=== PATIENT | male | born 1960 | race Caucasian/White ===

== ENCOUNTER 2016-08-21 01:17 | Emergency (ER) | payer BC, OTHER ==
[~2016-08-21] VITALS: Ht 175.3 cm; Wt 104.1 kg
[~2016-08-21 01:17] MED LIST: GABA-113 PO; OMEP40CA PO; TRD10 PO
[2016-08-21 01:23] VITALS: TEMP 36.7; Ht 175.3 cm; Wt 104.1 kg
[2016-08-21] MEDS ORDERED: KETOROLAC TROMETHAMINE 60 MG/2 ML VIAL IM STA (02:20)
[2016-08-21] MEDS ORDERED: CYCLOBENZAPRINE HCL 10 MG TAB PO STA (02:20)
--- NOTE | 2016-08-21 02:39 | EMERGENCY ROOM VISIT NOTE ---
History Report prepared by Vanesa: Kyle Benson Under the Supervision of: Dr. Sofi Pereira M.D. First contact with patient: 01:42 Chief Complaint: LEG PAIN,LEG INJURY Stated Complaint: LEG PAIN (WORKERS COMP) History of Present Illness The patient is a 55 year old male who presents to the Emergency Room with complaints of right buttock pain starting about a week ago. He describes it as a shooting pain with pain radiation down to the right leg. He has some worsening pain with bending over and movement. 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 He had some improvement in his pain initially but it worsened yesterday. He returned to work yesterday for the first time since the fall. He had been evaluated by his chiropractor without relief. He denies any urinary symptoms, urinary incontinence, or any other complaints. The patient has a history of sciatica to the left leg. Source of History: patient Onset: about a week ago Position: buttock (right) Quality: other (shooting pain) Timing: worsening Modifying Factors (Worsening): movement, other (bending over) Modifying Factors (Relieving): other (chiropractor without relief) Associated Symptoms: No urinary symptoms Review of Systems See HPI for pertinent positives & negatives. A total of 10 systems reviewed and were otherwise negative. Past Medical & Surgical Medical Problems: (1) Back Contusion (2) Chest pain Family History Diabetes mellitus Hypertension Social History Smoking Status: Never Smoker Alcohol Use: occasionally Marital Status: Housing Status: lives with family Current/Historical Medications Scheduled Amiloride/Hctz (Amiloride/Hydrochlorothia 5-50 mg), 1 TAB PO QAM Cyclobenzaprine Hcl (Flexeril), 1 TAB PO TID Gabapentin (Neurontin), 300 MG PO TID Omeprazole (Prilosec), 40 MG PO HS Scheduled PRN Ketorolac Tromethamine (Ketorolac Tromethamine), 10 MG PO DIRECTED PRN for Pain Allergies Coded Allergies: No Known Allergies (Unverified , 07/01/15) Physical Exam Vital Signs Date Time Temp Pulse Resp B/P (MAP) Pulse Ox O2 Delivery O2 Flow Rate FiO2 08/21/16 03:44 79 18 131/89 96 08/21/16 01:23 36.7 82 19 141/102 95 Room Air Physical Exam Vital signs reviewed. General: Well-appearing 55 yo male, in no significant distress. HEENT: No scleral icterus, PERRLA, neck supple. Atraumatic. Cardiovascular: Regular rate and rhythm, no extra sounds. Pulmonary: Clear to auscultation bilaterally, normal work of breathing. Abdomen: Obese, soft, nontender, nondistended, positive bowel sounds. Musculoskeletal: Atraumatic, no peripheral edema. Mild tenderness along the right buttock, pain with straight leg raise. Full strength of right lower extremity. Neurologic: Patient awake alert and oriented x 3, full strength in all 4 extremities. Skin: Warm, dry, no rash Medical Decision & Procedures ER Provider Diagnostic Interpretation: X-ray results as stated below per interpretation by me: LUMBAR SPINE X-RAY L3 has a superior endplate deformity, likely old fracture, some degenerative changes overall but no acute fracture or malalignment appreciated. Medications Administered Medications (Trade) Dose Ordered Sig/Heladio Route Start Time Stop Time Status Last Admin Dose Admin Ketorolac Tromethamine (Toradol Inj) 60 mg NOW STAT IM 08/21/16 02:20 08/21/16 02:21 DC 08/21/16 02:27 60 MG ED Course 0142: Past medical records reviewed. The patient was evaluated in room A03. A complete history and physical examination was performed. 0220: Flexeril Tab 10 mg PO, Toradol Inj 60 mg IM 0330: Upon reevaluation, the patient appeared to have improvement of his symptoms. I discussed findings with him. He verbalized agreement of the treatment plan. He was discharged home. Medical Decision Medication Reconciliation: I attest that I have personally reviewed the patient' s current medication list. Blood Pressure Screening: Patient was found to have an elevated blood pressure and was referred to their primary doctor for recheck and further treatment. Differential diagnosis: Etiologies such as musculoskeletal, disc herniation, fracture, aortic disease, metastatic disease, cord compression, discitis, infection, renal colic, gastrointestinal, acute exacerbation of chronic back pain, sciatica, cauda equina, as well as others were entertained. This patient was evaluated and appeared to be in no significant distress. Patient was given IM Toradol, no further medication was given as he is intending to drive home. X-rays were obtained and to my interpretation revealed no evidence of acute fracture or malalignment. Patient was given prescriptions for Flexeril to be used as needed for muscular relaxation. He will use ibuprofen as needed otherwise. The patient will follow-up with her primary care physician this week for reevaluation and return to the ER for worsening of symptoms or any medical concerns. Impression Primary Impression: Right lumbar radiculopathy Scribe Attestation The scribe's documentation has been prepared under my direction and personally reviewed by me in its entirety. I confirm that the note above accurately reflects all work, treatment, procedures, and medical decision making performed by me. Departure Information Dispostion Home / Self-Care Prescriptions Cyclobenzaprine Hcl (FLEXERIL) 10 Mg Tab 1 TAB PO TID for 10 Days, #30 TAB Prov: Sofi Pereira M.D. 08/21/16 Referrals Laurence Rangel M.D. (PCP) Forms HOME CARE DOCUMENTATION FORM, IMPORTANT VISIT INFORMATION Patient Instructions Lumbar Radiculopathy, My [facility] Additional Instructions Diagnosis: Right lumbar radiculopathy Ibuprofen 600 mg every 6 hours as needed for pain with food. Flexeril 10 mg three times daily as needed for muscular spasm. Do not drive on this medication. Follow up with your doctor or worker's comp physician this week. Return to emergency for worsening of symptoms or any medical concerns.
[2016-08-21] MEDS ORDERED: CYCL10TA6 PO (03:32)
[2016-08-21 03:44] VITALS: BP 131/89; PULSE 79; O2SAT 96
--- NOTE | 2016-08-21 07:04 | DIAGNOSTIC IMAGING REPORT ---
L-SPINE MIN 4 VIEWS ROUTINE CLINICAL HISTORY: lumbar radiculopathy COMPARISON STUDY: No previous studies for comparison. FINDINGS: There are multilevel degenerative changes present. There is posterior osteophytic spurring most pronounced at the L3-4 and L4-5 level. There is probable calcification of the posterior longitudinal ligament. There is narrowing of the AP diameter of the spinal canal. Spinal stenosis is suspected. No acute fractures are visualized. IMPRESSION: Multilevel degenerative change. Suspected spinal stenosis. No acute fractures. Electronically signed by: Deuce Hollingsworth M.D. 08/21/2016 7:02 AM Dictated Date/Time: 08/21/2016 7:01 AM
[2016-12-17] MEDS ORDERED: AMLH/550 PO (11:17)
== END 2016-08-21 03:45 | disposition home or self-care (01) ==
LOC: C.EDB 01:18 → C.EDA 03:45
DX: M54.16 Radiculopathy, lumbar region (principal); Z83.3 Family history of diabetes mellitus; Z82.49 Family history of ischemic heart disease and other diseases of the circulatory system; Z79.899 Other long term (current) drug therapy; E66.9 Obesity, unspecified; Z68.33 Body mass index [BMI] 33.0-33.9, adult

== ENCOUNTER → 2016-11-12 | Outpatient (CLI) | payer OTHER ==
[~2016-11-12] MED LIST changes: +AMLH/550 PO; +MECL1TAB42 PO
[2016-11-12 12:50] LABS: ESTIMATED AVERAGE GLUCOSE 117 mg/dl; HA1C FLAG Normal (Normal)
[2016-11-12 13:01] LABS: ALT/SGPT 65 U/L (12-78); BLOOD UREA NITROGEN 15 mg/dl (7-18); BUN/CREATININE RATIO 12.3 (10-20); CALCIUM 9.7 mg/dl (8.5-10.1); CARBON DIOXIDE 31 mmol/L (21-32); CHLORIDE 100 mmol/L (98-107); CHOLESTEROL 207 mg/dl (0-200); GLUCOSE 110 mg/dl (70-99); SODIUM 135 mmol/L (136-145); TRIGLYCERIDES 107 mg/dl (0-150); VERY LOW DENSITY LIPOPROT CALC 21 mg/dl
[2016-11-12 13:04] LABS: ALB/GLOB RATIO 1.1 (0.9-2); ALKALINE PHOSPHATASE 61 U/L (45-117); AST/SGOT 36 U/L (15-37); HDL CHOLESTEROL 68 mg/dl; LDL CHOLESTEROL CALCULATED 118 mg/dl
== END | disposition home or self-care (01) ==
LOC: C.LABBFT 08:30
PROVIDERS: ATTEND Internal Medicine
DX: Z00.00 Encounter for general adult medical examination without abnormal findings (principal); I10 Essential (primary) hypertension; R73.01 Impaired fasting glucose

== ENCOUNTER 2016-11-22 08:06 | Emergency (ER) | payer BC, OTHER ==
[~2016-11-22] VITALS: Ht 175.3 cm; Wt 120.0 kg
[~2016-11-22 08:06] MED LIST changes: -MECL1TAB42 PO
[2016-11-22 08:10] VITALS: TEMP 36.7
[2016-11-22] MEDS ORDERED: ONDANSETRON INJ 2 MG/ML 2 ML VIAL IV STA (08:23)
[2016-11-22] MEDS ORDERED: SODIUM CHLORIDE 0.9% 1000ML 1,000 ML IV STA (08:23)
[2016-11-22] MEDS ORDERED: MECLIZINE HCL 25 MG TAB PO STA (08:23)
[2016-11-22] MEDS ORDERED: LORAZEPAM 2 MG/ML 1 ML VIAL IV STA (08:23)
[2016-11-22 08:54] VITALS: O2SAT 94
[2016-11-22 08:55] VITALS: Ht 175.3 cm; Wt 120.0 kg
[2016-11-22 09:00] LABS: BASO % 0.4 %; BASO ABS # 0.02 K/uL (0-0.2); COMPLETE YES; EOS % 1.5 %; HEMATOCRIT 40.3 % (42-52); IG% 0.2 %; LYMPH % 25.8 %; LYMPH ABS # 1.41 K/uL (1.2-3.4); MEAN CORPUSCULAR HEMOGLOBIN 31.8 pg (25-34); MEAN CORPUSCULAR HGB CONC 35.7 g/dl (32-36); MEAN PLATELET VOLUME 10.5 fL (7.4-10.4); MONO % 7.5 %; NEUT % 64.6 %; PLATELET COUNT 134 K/uL (130-400); RED BLOOD COUNT 4.53 M/uL (4.7-6.1); WHITE BLOOD COUNT 5.47 K/uL (4.8-10.8)
--- NOTE | 2016-11-22 09:10 | DIAGNOSTIC IMAGING REPORT ---
CHEST ONE VIEW PORTABLE CLINICAL HISTORY: EVALUATE ALTERED MENTAL STATUS/WEAKNESS dyspnea COMPARISON STUDY: 05/03/2013 FINDINGS: Mild stable cardia megaly. Lungs are clear. Diaphragms smooth. IMPRESSION: Mild stable cardiomegaly. Otherwise negative study. The above report was generated using voice recognition software. It may contain grammatical, syntax or spelling errors. Electronically signed by: Dillon Andujar M.D. 11/22/2016 9:09 AM Dictated Date/Time: 11/22/2016 9:09 AM
[2016-11-22 09:11] LABS: PROTHROMBIN TIME (PATIENT) 10.3 SECONDS (9.0-12.0)
[2016-11-22 09:18] LABS: BLOOD UREA NITROGEN 16 mg/dl (7-18); BUN/CREATININE RATIO 14.9 (10-20); CALCIUM 9.2 mg/dl (8.5-10.1); CARBON DIOXIDE 26 mmol/L (21-32); CHLORIDE 103 mmol/L (98-107); GLUCOSE 129 mg/dl (70-99); MAGNESIUM 2.3 mg/dl (1.8-2.4); POTASSIUM 3.6 mmol/L (3.5-5.1); SODIUM 139 mmol/L (136-145)
--- NOTE | 2016-11-22 09:28 | DIAGNOSTIC IMAGING REPORT ---
HEAD WITHOUT CONTRAST (CT) CT DOSE: 1074.96 mGy.cm HISTORY: DIZZY/VERTIGO/LINDSAY - please include sinuses TECHNIQUE: Multiaxial CT images of the head were performed without the use of intravenous contrast. A dose lowering technique was utilized adhering to the principles of ALARA. Comparison: None. Findings: Mild mucosal thickening of the ethmoid sinuses. The calvarium and skull base are intact. The ventricles and sulci are within normal limits. There is no mass, hematoma, midline shift, or acute infarct. Impression: No acute intracranial abnormality. . Mild mucosal thickening of the ethmoid sinuses The above report was generated using voice recognition software. It may contain grammatical, syntax or spelling errors. Electronically signed by: Dillon Andujar M.D. 11/22/2016 9:27 AM Dictated Date/Time: 11/22/2016 9:25 AM
[2016-11-22 09:30] LABS: ALKALINE PHOSPHATASE 55 U/L (45-117); ALT/SGPT 54 U/L (12-78); AST/SGOT 34 U/L (15-37); PHOSPHORUS 1.9 mg/dl (2.5-4.9)
[2016-11-22] MEDS ORDERED: DiphenhydrAMINE HCL 50 MG/ML VIAL IV STA (09:55)
[2016-11-22 10:35] LABS: URINE APPEARANCE CLEAR (CLEAR); URINE BILIRUBIN NEG (NEG); URINE COLOR YELLOW; URINE NITRITE NEG (NEG); URINE SPECIFIC GRAVITY 1.018 (1.000-1.030); UROBILINOGEN NEG (NEG)
[2016-11-22 10:37] LABS: MANUAL MICROSCOPIC REQUIRED? NO; REVIEW REQ? NO
[2016-11-22] MEDS ORDERED: MECL1TAB42 PO (11:37)
[2016-11-22 11:40] VITALS: BP 132/97; PULSE 73; O2SAT 95
--- NOTE | 2016-11-22 18:06 | EMERGENCY ROOM VISIT NOTE ---
History First contact with patient: 08:15 Chief Complaint: VERTIGO Stated Complaint: VERTIGO Nursing Triage Summary: pt states woke up this morning at 0700 with vertigo symptoms, states he took a meclizine and it did not help with symptoms, pt states vomiting x 3 since 0700. Pt states headache at this time. Pt unable to follow finger with exam, pupils pinpoint at this time. PA-C at bedside at this time. History of Present Illness The patient is a 56 year old male who presents to the Emergency Room with complaints of significant room spinning dizziness, left-sided headache, nausea and vomiting 3 since awakening at 7 AM this morning. The patient reports he felt fine last night when going to bed. He denies any other recent illnesses, headaches, sinus congestion, chest pain or shortness of breath. The patient reports a history of vertigo and chronic tinnitus. He has not had any neurology workup for his symptoms, and has not seen ENT or an principal technical architect. The patient reports that the spinning sensation is worse when his eyes are open. He has not noticed any light or sound sensitivity. He denies history of migraines or chronic headaches. He denies any recent neck pain. He currently rates his headache a 7 out of 10, but complains mostly of nausea and dizziness. Review of Systems HEENT: Reports spinning dizziness, visual problems and tinnitus. Denies difficulty swallowing or oral lesions. PULMONARY: Denies cough, shortness of breath, sputum production or hemoptysis. CARDIOVASCULAR: Denies chest pain, palpitations, dyspnea on exertion, orthopnea or peripheral edema. GASTROINTESTINAL: Denies diarrhea, constipation or abdominal pain. GENITOURINARY: Denies dysuria, frequency, urgency or nocturia. NEUROLOGIC: Denies history of epilepsy, CVA, TIA or chronic headaches. MUSCULOSKELETAL: Denies history of joint tenderness/swelling. SKIN: Denies rashes or lesions. PSYCHIATRIC: Denies history of depression or mental illness. ENDOCRINE: Denies history of diabetes or thyroid disorders. Past Medical/Surgical History Medical Problems: (1) Back Contusion (2) Chest pain Family History Diabetes mellitus Hypertension Social History Smoking Status: Never Smoker Alcohol Use: occasionally Marital Status: Housing Status: lives with family Current/Historical Medications Scheduled Amiloride/Hctz (Amiloride/Hydrochlorothia 5-50 mg), 1 TAB PO QAM Scheduled PRN Meclizine Hcl (Meclizine Hcl), 1 TAB PO TID PRN for vertigo Physical Exam Vital Signs Date Time Temp Pulse Resp B/P (MAP) Pulse Ox O2 Delivery O2 Flow Rate FiO2 11/22/16 11:40 73 16 132/97 95 11/22/16 10:56 65 14 122/82 97 Room Air 11/22/16 10:19 68 16 149/100 97 Room Air 11/22/16 09:34 71 16 136/60 96 Room Air 11/22/16 09:30 68 128/80 87 138/89 11/22/16 08:54 94 Room Air 11/22/16 08:40 94 Room Air 11/22/16 08:22 64 11/22/16 08:10 36.7 67 18 153/91 94 Room Air Physical Exam CONSTITUTIONAL: Healthy and well nourished. Alert and oriented X 3 with positive affect. Patient appears in moderate discomfort from dizziness and nausea. He is holding and emesis bag, and holding his eyes shut HEENT: Normocephalic, atraumatic. Pupils equal, round and reactive. No nystagmus appreciated. No scleral icterus or conjunctival injection. Examination of the years does not show any air-fluid levels, serous or purulent effusion. Bony landmarks are visible. No rhinorrhea. No tenderness to palpation or percussion of the frontal or maxillary sinuses. NECK: Full active range of motion without discomfort. No JVD or carotid bruits appreciated. No nuchal rigidity. RESPIRATORY: Clear to auscultation bilaterally with no wheezing, crackles, rhonchi or stridor. CARDIOVASCULAR: Regular rate and rhythm with no murmurs, rubs or gallops. GASTROINTESTINAL: Bowel sounds present in all quadrants. Soft and nontender to palpation. MUSCULOSKELETAL: Full range of motion of all joints without discomfort. INTEGUMENTARY: No rash or other significant dermatologic conditions noted. NEUROLOGIC: Cranial nerves II-XII grossly intact. No focal neurologic deficits noted. Other peripheral tests were deferred because the patient could not tolerate having his eyes open on initial exam. Medical Decision & Procedures ER Provider Diagnostic Interpretation: My interpretation of an ECG shows a normal sinus rhythm of [address] elevation or other conduction abnormalities. My interpretation of a portable chest x-ray shows mild cardiomegaly without any consolidations, pneumothorax or widened mediastinum. Radiologist report is as follows: CHEST ONE VIEW PORTABLE CLINICAL HISTORY: EVALUATE ALTERED MENTAL STATUS/WEAKNESS dyspnea COMPARISON STUDY: 05/03/2013 FINDINGS: Mild stable cardia megaly. Lungs are clear. Diaphragms smooth. IMPRESSION: Mild stable cardiomegaly. Otherwise negative study. Noncontrast CT of the head does not show any acute intracranial masses, midline shift or mass effect. Radiologist report is as follows: HEAD WITHOUT CONTRAST (CT) CT DOSE: 1074.96 mGy.cm HISTORY: DIZZY/VERTIGO/LINDSAY - please include sinuses TECHNIQUE: Multiaxial CT images of the head were performed without the use of intravenous contrast. A dose lowering technique was utilized adhering to the principles of ALARA. Comparison: None. Findings: Mild mucosal thickening of the ethmoid sinuses. The calvarium and skull base are intact. The ventricles and sulci are within normal limits. There is no mass, hematoma, midline shift, or acute infarct. Impression: No acute intracranial abnormality. . Mild mucosal thickening of the ethmoid sinuses Laboratory Results 11/22/16 08:45 Red Blood Count 4.53, Mean Corpuscular Volume 89.0, Mean Corpuscular Hemoglobin 31.8, Mean Corpuscular Hemoglobin Concent 35.7, Mean Platelet Volume 10.5, Neutrophils (%) (Auto) 64.6, Lymphocytes (%) (Auto) 25.8, Monocytes (%) (Auto) 7.5, Eosinophils (%) (Auto) 1.5, Basophils (%) (Auto) 0.4, Neutrophils # (Auto) 3.54, Lymphocytes # (Auto) 1.41, Monocytes # (Auto) 0.41, Eosinophils # (Auto) 0.08, Basophils # (Auto) 0.02 11/22/16 08:45 Test 11/22/16 08:45 11/22/16 10:25 White Blood Count 5.47 K/uL (4.8-10.8) Red Blood Count 4.53 M/uL (4.7-6.1) Hemoglobin 14.4 g/dL (14.0-18.0) Hematocrit 40.3 % (42-52) Mean Corpuscular Volume 89.0 fL (80-100) Mean Corpuscular Hemoglobin 31.8 pg (25-34) Mean Corpuscular Hemoglobin Concent 35.7 g/dl (32-36) Platelet Count 134 K/uL (130-400) Mean Platelet Volume 10.5 fL (7.4-10.4) Neutrophils (%) (Auto) 64.6 % Lymphocytes (%) (Auto) 25.8 % Monocytes (%) (Auto) 7.5 % Eosinophils (%) (Auto) 1.5 % Basophils (%) (Auto) 0.4 % Neutrophils # (Auto) 3.54 K/uL (1.4-6.5) Lymphocytes # (Auto) 1.41 K/uL (1.2-3.4) Monocytes # (Auto) 0.41 K/uL (0.11-0.59) Eosinophils # (Auto) 0.08 K/uL (0-0.5) Basophils # (Auto) 0.02 K/uL (0-0.2) RDW Standard Deviation 41.8 fL (36.4-46.3) RDW Coefficient of Variation 12.9 % (11.5-14.5) Immature Granulocyte % (Auto) 0.2 % Immature Granulocyte # (Auto) 0.01 K/uL (0.00-0.02) Prothrombin Time 10.3 SECONDS (9.0-12.0) Prothromb Time International Ratio 1.0 (0.9-1.1) Activated Partial Thromboplast Time 25.9 SECONDS (21.0-31.0) Partial Thromboplastin Ratio 1.0 Anion Gap 10.0 mmol/L (3-11) Est Creatinine Clear Calc Drug Dose 97.1 ml/min Estimated GFR () 87.1 Estimated GFR (Non- 75.2 BUN/Creatinine Ratio 14.9 (10-20) Bedside Glucose 123 mg/dl (70-99) Calcium Level 9.2 mg/dl (8.5-10.1) Phosphorus Level 1.9 mg/dl (2.5-4.9) Magnesium Level 2.3 mg/dl (1.8-2.4) Total Bilirubin 0.5 mg/dl (0.2-1) Direct Bilirubin 0.2 mg/dl (0-0.2) Aspartate Amino Transf (AST/SGOT) 34 U/L (15-37) Alanine Aminotransferase (ALT/SGPT) 54 U/L (12-78) Alkaline Phosphatase 55 U/L (45-117) Troponin I < 0.015 ng/ml (0-0.045) Total Protein 7.3 gm/dl (6.4-8.2) Albumin 3.6 gm/dl (3.4-5.0) Thyroid Stimulating Hormone (TSH) 1.240 uIu/ml (0.300-4.500) Urine Color YELLOW Urine Appearance CLEAR (CLEAR) Urine pH 7.0 (4.5-7.5) Urine Specific [place]le 1.018 (1.000-1.030) Urine Protein NEG (NEG) Urine Glucose (UA) NEG (NEG) Urine Ketones NEG (NEG) Urine Occult Blood NEG (NEG) Urine Nitrite NEG (NEG) Urine Bilirubin NEG (NEG) Urine Urobilinogen NEG (NEG) Urine Leukocyte Esterase NEG (NEG) The above labs were reviewed and were grossly normal. Medications Administered Medications (Trade) Dose Ordered Sig/Heladio Route Start Time Stop Time Status Last Admin Dose Admin Ondansetron HCl (Zofran Inj) 4 mg NOW STAT IV 11/22/16 08:23 11/22/16 08:29 DC 11/22/16 08:48 4 MG Sodium Chloride 1,000 ml @ 999 mls/hr Q1H1M STAT IV 11/22/16 08:23 11/22/16 09:23 DC 11/22/16 08:48 999 MLS/HR Lorazepam (Ativan Inj) 1 mg NOW STAT IV 11/22/16 08:23 11/22/16 08:29 DC 11/22/16 08:48 1 MG Meclizine HCl (Antivert Tab) 25 mg NOW STAT PO 11/22/16 08:23 11/22/16 08:29 DC 11/22/16 08:48 25 MG Diphenhydramine HCl (Benadryl Inj) 25 mg NOW STAT IV 11/22/16 09:55 11/22/16 09:56 DC 11/22/16 10:02 25 MG Procedure 1. IV hydration: The patient was administered normal saline 1 L bolus 2. IV medications: Ativan 1 mg and Zofran 4 mg IVP. 3. Oral medications: Meclizine 25 mg orally. ED Course Patient history and physical exam were performed. Nurse's notes were reviewed. Vital signs were reviewed, showing a blood pressure 153/91. O2 saturation is 94% on room air. The patient is afebrile and not tachycardic. The patient appears quite nauseated, and is holding his eyes shut because his spending symptoms are worsened with open eyes. IV access was established, and labs were drawn. The patient was hydrated with normal saline, and received IV/oral medications as discussed in the previous Procedure section. Review of labs shows no acute abnormalities. ECG and portable chest x-ray were normal. A noncontrast CT of the head was also normal. Upon reexamination, the patient reports that he did have moderate relief of his dizziness, but still had been of symptoms that he didn't feel comfortable trying to stand up and walk. He was given additional IV Benadryl, and observed for another period of time with significant improvement of symptoms. He was able to trial ambulated to the bathroom without any difficulty. The patient was provided an additional prescription for meclizine. The vertigo handout was provided. He was instructed to sleep with his head elevated, and avoid sudden movements. I did encourage him to follow-up with his PCP in the next 2-3 days for reevaluation. Because the patient does have prior history of vertigo and tinnitus, I did suggest that he follow-up with his PCP to discuss possible neurology or ENT referral to rule out other vestibular causes. Return to the emergency department for worsening symptoms or other concerning symptoms. The patient was happy with plan of care, and voiced understanding of all discharge instructions. The case was also discussed with Dr. Will, ED attending physician, who agrees with workup and plan of care. Medical Decision Patient presents to the emergency department with vertigo symptoms and headache. The patient has had a recent head CT with history of vertigo. However, this is the first time that he has had a headache with his vertigo. I therefore thought necessary to rule out intracranial bleed or other acute etiologies. CT scan did not show any evidence for midline shift or mass effect. The patient doesn't give any history to suggest carbon monoxide poisoning. His physical exam is not suggestive of CVA/TIA. He has no history of recent illness suggest abscess, and clinical exam is not consistent with meningitis. The patient is a typical description of the room spinning, and does have a prior history of vertigo. [facility] Drug Monitoring Program Search Results: patient reviewed within database Medication Reconcilliation Current Medication List: was personally reviewed by me Blood Pressure Screening Patient's blood pressure: Normal blood pressure Impression Primary Impression: Benign positional vertigo Departure Information Prescriptions Meclizine Hcl (MECLIZINE HCL) 25 Mg Tab 1 TAB PO TID Y for vertigo, #15 TAB Prov: Jesús Parsons PA 11/22/16 Referrals Laurence Rangel M.D. (PCP) Patient Instructions My [facility] Problem Qualifiers Primary Impression: Benign positional vertigo Laterality: unspecified laterality Qualified Codes: H81.10 - Benign paroxysmal vertigo, unspecified ear
== END 2016-11-22 11:43 | disposition home or self-care (01) ==
LOC: C.EDB 08:08
DX: H81.10 Benign paroxysmal vertigo, unspecified ear (principal); R51 Headache; R11.2 Nausea with vomiting, unspecified; Z83.3 Family history of diabetes mellitus; Z82.49 Family history of ischemic heart disease and other diseases of the circulatory system; Z79.899 Other long term (current) drug therapy

== ENCOUNTER 2016-12-17 16:26 | Emergency (ER) | payer BC ==
[~2016-12-17] VITALS: Ht 175.3 cm; Wt 118.0 kg
[~2016-12-17 16:26] MED LIST changes: -GABA-113 PO; +MECL1TAB42 PO; -OMEP40CA PO; -TRD10 PO
[2016-12-17 16:29] VITALS: TEMP 36.6; Ht 175.3 cm; Wt 118.0 kg
[2016-12-17] MEDS ORDERED: FLX10 PO (16:47)
[2016-12-17] MEDS ORDERED: OXYCODONE HCL IR 5 MG TAB (IMMEDIATE RELEASE) PO STA (16:56)
--- NOTE | 2016-12-17 17:44 | DIAGNOSTIC IMAGING REPORT ---
R FOOT MIN 3 VIEWS ROUTINE CLINICAL HISTORY: Right foot pain. Trauma to metatarsals. COMPARISON: None FINDINGS: Alignment of the right foot is anatomic. Tarsometatarsal joints are intact. No acute fracture is identified. There is moderate dorsal midfoot soft tissue swelling. Note is made of mild posterior and moderate plantar calcaneal spurring. IMPRESSION: 1. No acute fracture or dislocation within the right foot. 2. Moderate dorsal midfoot soft tissue swelling. Electronically signed by: Torsten Rangel M.D. 12/17/2016 5:42 PM Dictated Date/Time: 12/17/2016 5:40 PM
--- NOTE | 2016-12-17 18:01 | EMERGENCY ROOM VISIT NOTE ---
History First contact with patient: 16:51 Chief Complaint: FOOT PAIN Stated Complaint: FOOT PAIN History of Present Illness The patient is a 56 year old male who presents to the Emergency Room via private vehicle accompanied by with complaints of "foot pain". The patient states that earlier today about 20 minutes prior to arrival he was at home, and a lock box fell off of the shelf in his closet landing on the top of his right foot. He rates the pain as a 10/10. There is pain with weightbearing and moving the toes. Review of Systems A complete 6-point Review of Systems was discussed with the patient, with pertinent positives and negatives listed in the History of Present Illness. All remaining Review of Systems questions can be considered negative unless otherwise specified. Past Medical/Surgical History Medical Problems: (1) Back Contusion (2) Chest pain Family History Diabetes mellitus Hypertension Social History Smoking Status: Never Smoker Alcohol Use: occasionally Marital Status: Housing Status: lives with family Patient lives locally. Current/Historical Medications Scheduled Amiloride/Hctz (Amiloride/Hydrochlorothia 5-50 mg), 1 TAB PO QAM Cyclobenzaprine HCl (Cyclobenzaprine HCl), 10 MG PO PRN UD Scheduled PRN Meclizine Hcl (Meclizine Hcl), 1 TAB PO TID PRN for vertigo Oxycodone Ir (Roxicodone Ir), 1-2 TAB PO Q4H PRN for Pain Physical Exam Vital Signs Date Time Temp Pulse Resp B/P (MAP) Pulse Ox O2 Delivery O2 Flow Rate FiO2 12/17/16 19:17 66 20 108/82 96 12/17/16 18:36 74 16 136/83 94 Room Air 12/17/16 16:29 36.6 83 18 156/93 96 Room Air Physical Exam VITAL SIGNS - Vital signs and nursing notes were reviewed. Stable. Hypertensive. GENERAL -56-year-old male appearing his stated age who is in no acute distress. Communicates well with provider and answers questions appropriately. SKIN - Without rashes. There is soft tissue edema overlying the top of the patient's right foot, but the skin is intact. No ecchymosis. EXTREMITIES - No clubbing or peripheral cyanosis. No pretibial edema present. There is tenderness to palpation overlying the top of the patient's right foot. There is also tenderness with range of motion of the toes. He is neurovascularly intact. +5/5 strength noted in UE/LE bilaterally. Medical Decision & Procedures ER Provider Diagnostic Interpretation: R FOOT MIN 3 VIEWS ROUTINE CLINICAL HISTORY: Right foot pain. Trauma to metatarsals. COMPARISON: None FINDINGS: Alignment of the right foot is anatomic. Tarsometatarsal joints are intact. No acute fracture is identified. There is moderate dorsal midfoot soft tissue swelling. Note is made of mild posterior and moderate plantar calcaneal spurring. IMPRESSION: 1. No acute fracture or dislocation within the right foot. 2. Moderate dorsal midfoot soft tissue swelling. Electronically signed by: Torsten Rangel M.D. 12/17/2016 5:42 PM Dictated Date/Time: 12/17/2016 5:40 PM Medications Administered Medications (Trade) Dose Ordered Sig/Heladio Route Start Time Stop Time Status Last Admin Dose Admin Oxycodone HCl (Roxicodone Immediate Rel Tab) 5 mg NOW STAT PO 12/17/16 16:56 12/17/16 16:58 DC 12/17/16 17:09 5 MG Medical Decision Patient was seen and evaluated as above. He presents to us today status post trauma to the top of his right foot. His exam reveals intact skin, with some edema. X-rays are negative. I suspect he has soft tissue contusion, but did educate him upon the chance of occult fracture. He'll be made nonweightbearing with crutches, as well as given a postop shoe for comfort. Because of the patient's amount of edema, and pain I do believe that narcotic medication is reasonable for a short course for pain management. He'll be given oxycodone. No red flag identified in the [employer] drug monitoring system. He is to follow-up with orthopedics. He was educated upon management, educated upon worrisome symptoms which to return, had questions answered prior to discharge, and was discharged home in good condition. In the evaluation and treatment of this patient, the following differential diagnoses were considered: Ankle Fracture, Ankle Sprain, Distal Fibula Fracture , Distal Tibia Fracture, Foot Fracture, Maisonneuve Fracture. Impression Primary Impression: Foot pain Departure Information Dispostion Home / Self-Care Condition GOOD Prescriptions Oxycodone Ir (Roxicodone Ir) 5 Mg Tab 1-2 TAB PO Q4H Y for Pain, #15 TAB For Initial Treatment Prov: Guy Moss PA-C 12/17/16 Referrals Laurence Rangel M.D. (PCP) Mikey Morales M.D. Patient Instructions My [facility] Additional Instructions You have been treated in the Emergency Department for a right foot injury. You have received pain medicine in the emergency department which impairs your ability to operate a vehicle. It is illegal for you to drive after receiving these medicines. You have been prescribed OXY IR to be used for pain control. This is a narcotic medication. You cannot drive or consume alcohol while on this medicine. This medicine should only be used for pain that cannot be controlled with over-the- counter pain medicines. For pain control, you can use the following [id number] medicines: - Regular strength (325mg/tab) Tylenol (acetaminophen) 2 tabs every 4-6 hours as needed. Do not exceed 12 tablets in a 24 hour period. Avoid taking more than 3 grams (3000 mg) of Tylenol per day. This includes any other sources of acetaminophen you may take on a regular basis. If this is a recent injury (<24 hrs), ice can be applied to the area of pain for the first 3 days to help decrease pain and inflammation. You have been provided the number for an Orthopaedic Surgeon. You should call this number as soon as possible to establish a follow-up visit from today's Emergency Department visit. Keep the foot brace/splint in place until cleared by Orthopedics. Use the crutches you have been provided to keep ALL weight off of the ankle until weight bearing is tolerable. Return to the Emergency Department if your current symptoms worsen despite treatment course outlined above, or if you develop any of the following symptoms : intractable pain despite aforementioned treatment course or new onset of numbness or tingling of the foot.
[2016-12-17] MEDS ORDERED: OXYC1TAB3 PO (18:05)
[2016-12-17 19:17] VITALS: BP 108/82; PULSE 66; O2SAT 96
== END 2016-12-17 19:20 | disposition home or self-care (01) ==
LOC: C.EDB 16:27 → C.EDD 19:20
DX: S99.921A Unspecified injury of right foot, initial encounter (principal); W20.8XXA Other cause of strike by thrown, projected or falling object, initial encounter; R03.0 Elevated blood-pressure reading, without diagnosis of hypertension; Z79.899 Other long term (current) drug therapy; Z83.3 Family history of diabetes mellitus; Z82.49 Family history of ischemic heart disease and other diseases of the circulatory system

== ENCOUNTER → 2017-07-02 | Outpatient (CLI) | payer OTHER ==
[~2017-07-02] MED LIST changes: +FLX10 PO; -MECL1TAB42 PO
[2017-07-02 17:06] LABS: BASO % 0.2 %; BASO ABS # 0.02 K/uL (0-0.2); EOS % 0.8 %; EOS ABS # 0.07 K/uL (0-0.5); HEMATOCRIT 45.5 % (42-52); HEMOGLOBIN 15.5 g/dL (14.0-18.0); IG# 0.01 K/uL (0.00-0.02); LYMPH % 25.7 %; LYMPH ABS # 2.21 K/uL (1.2-3.4); MEAN CELL VOLUME 91.2 fL (80-100); MEAN CORPUSCULAR HEMOGLOBIN 31.1 pg (25-34); MEAN CORPUSCULAR HGB CONC 34.1 g/dl (32-36); MEAN PLATELET VOLUME 10.3 fL (7.4-10.4); MONO % 8.1 %; NEUT % 65.1 %; NEUT ABS # 5.58 K/uL (1.4-6.5); PLATELET COUNT 158 K/uL (130-400); RED CELL DISTRIBUTION WIDTH CV 13.4 % (11.5-14.5); RED CELL DISTRIBUTION WIDTH SD 43.9 fL (36.4-46.3); WHITE BLOOD COUNT 8.59 K/uL (4.8-10.8)
[2017-07-02 17:23] LABS: ALBUMIN 3.9 gm/dl (3.4-5.0); ALT/SGPT 69 U/L (12-78); AST/SGOT 33 U/L (15-37); BLOOD UREA NITROGEN 28 mg/dl (7-18); CALCIUM 9.1 mg/dl (8.5-10.1); CARBON DIOXIDE 28 mmol/L (21-32); CREATININE 1.37 mg/dl (0.60-1.40); GLUCOSE 96 mg/dl (70-99); POTASSIUM 3.7 mmol/L (3.5-5.1); SODIUM 135 mmol/L (136-145)
[2017-07-02 17:25] LABS: ALKALINE PHOSPHATASE 63 U/L (45-117); TOTAL PROTEIN 8.1 gm/dl (6.4-8.2)
[2017-07-03 07:42] LABS: HEMOGLOBIN A1C 5.7 % (4.5-5.6)
== END | disposition home or self-care (01) ==
LOC: C.LABBFT 11:37
PROVIDERS: ATTEND Internal Medicine
DX: Z00.00 Encounter for general adult medical examination without abnormal findings (principal); I10 Essential (primary) hypertension; R73.01 Impaired fasting glucose; K52.9 Noninfective gastroenteritis and colitis, unspecified

== ENCOUNTER 2018-03-04 08:43 | Inpatient (IN) ==
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
[2018-03-04 09:40] LABS: Appearance Urine Clear (Clear); Bilirubin Urine Negative (Negative); Color Urine Yellow; Glucose Urine UA Negative (Negative); Ketones Urine Negative (Negative); Leukocyte Esterase Urine Negative (Negative); Nitrite Urine Negative (Negative); Protein Urine Negative (Negative); Urobilinogen Urine Negative (Negative); pH Urine 6.5 (4.5-7.5)
[2018-03-04 10:08] LABS: Amphetamines+Metham, Urine Neg (Neg); Barbiturates, Urine Neg (Neg); Benzodiazepine, Urine Neg (Neg); Cocaine, Urine Neg (Neg); MDMA (Ecstacy), Urine Neg (Neg); Methadone, Urine Neg (Neg); Opiate, Urine Neg (Neg); Phencyclidine, Urine Neg (Neg)
[2018-03-04 10:26] LABS: Basophils # (auto) 0.02 K/uL (0-0.2); Basophils % (auto) 0.4 %; Eosinophils # (auto) 0.07 K/uL (0-0.5); Eosinophils % (auto) 1.3 %; Hematocrit (blood only) 42.6 % (42-52); Hemoglobin 15.2 g/dL (14.0-18.0); Immature Granulocytes # (auto) 0.01 K/uL (0.00-0.02); Immature Granulocytes % (auto) 0.2 %; Lymphocytes # (auto) 1.61 K/uL (1.2-3.4); Lymphocytes % (auto) 29.2 %; Mean Corpuscular Hgb Conc 35.7 g/dL (32-36); Mean Platelet Volume 10.7 fL (7.4-10.4); Monocytes # (auto) 0.37 K/uL (0.11-0.59); Monocytes % (auto) 6.7 %; Neutrophils # (auto) 3.44 K/uL (1.4-6.5); Neutrophils % (auto) 62.2 %; Platelet Count 139 K/uL (130-400); RDW Coefficient of Variation 12.1 % (11.5-14.5); RDW Standard Deviation 39.1 fL (36.4-46.3); Red Blood Count 4.84 M/uL (4.7-6.1); White Blood Count 5.52 K/uL (4.8-10.8)
[2018-03-04] MEDS ORDERED: IBUPROFEN 200 MG TAB PO STA (10:32)
[2018-03-04 10:44] LABS: Albumin Level 3.8 gm/dl (3.4-5.0); BUN Creatinine Ratio 13.7 (10-20); Calcium 9.5 mg/dl (8.5-10.1); Creatinine Clr Calc Pharmacy 93.3 ml/min; Est GFR (African American) 84.7; Potassium 3.5 mmol/L (3.5-5.1)
[2018-03-04 10:54] LABS: Albumin Globulin Ratio 0.9 (0.9-2); Bilirubin,Total 0.7 mg/dl (0.2-1); Total Protein 7.8 gm/dl (6.4-8.2)
[2018-03-04 10:56] LABS: Acetaminophen < 2 ug/ml (10-30); Salicylate < 1.7 mg/dl (2.8-20)
--- NOTE | 2018-03-04 10:58 | CT Scan Report ---
CT head/brain wo con CLINICAL HISTORY: 57 years-old Male presenting with headache, altered mental status. TECHNIQUE: Multidetector CT imaging of the head was performed without the use of intravenous contrast . IV contrast: None. A dose lowering technique was used consistent with the principles of ALARA (as l ow as reasonably achievable). COMPARISON: 11/22/2016. CT DOSE (mGy.cm): The estimated cumulative dose is 788.63 mGycm. FINDINGS: Sport Intern topogram: Unremarkable. Ring artifact is noted on several images. Ventricles and sulci normal in size. No hemorrhage. Brain parenchyma normal in appearance with preser roberto negrete-white differentiation. No acute territorial infarct. No mass effect or midline shift. No ext ra-axial fluid collection. Mild mucosal thickening in the maxillary sinuses and ethmoid air cells. Ca lvarium intact. IMPRESSION: 1. No acute intracranial abnormality. Electronically signed by: Vern Hill M.D. 03/04/2018 10:57 AM
[2018-03-04] MEDS ORDERED: ALUMINUM/MAGNESIUM SUSP 30 ML UDC PO PRN (12:33)
[2018-03-04] MEDS ORDERED: BISMUTH SUBSALICYLATE PER ML OMNICELL CHARGE PO PRN (12:33)
[2018-03-04] MEDS ORDERED: SODIUM CHLORIDE 0.65% NA SOLN 45 ML (OCEAN) PRN (12:33)
[2018-03-04] MEDS ORDERED: MAGNESIUM HYDROXIDE SUSP 30 ML UDC PO PRN (12:33)
[2018-03-04] MEDS ORDERED: TEMAZEPAM 15 MG CAPSULE PO PRN (14:49)
[2018-03-04] MEDS ORDERED: clonazePAM 1 MG TAB PO ONE (15:00)
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
[2018-03-04] MEDS: ARIPiprazole 5 MG TAB PO SCH (15:25)
[2018-03-04] MEDS: IBUPROFEN 600 MG TAB PO PRN (16:17)
[2018-03-04] MEDS: PRAZOSIN HCL 1 MG CAP PO SCH (21:12)
--- NOTE | 2018-03-05 07:28 | Psychiatric Progress Note ---
Date of Service March 05, 2018 Impression / Recommendations Impression Patient remains depressed with suicidal thoughts, and has been suffering from debilitating headaches making it difficult for him to participate in the therapy and group aspect of treatment. He has been started on multiple new medications to target mood and sleep, we will continue to treat his headaches and encourage participation in treatment as these resolved. He will need a family meeting with his once he is able to participate. He continues to require inpatient treatment due to the severity of his symptoms and risk for suicide if discharged. (1) Depression with suicidal ideation: 1/ - history of recurrent major depressive episodes and presents today with depression and suicidal thoughts with a specific plan to hang himself. He had been discharged in an improved condition from [facility] behavioral health unit on 02/18/2018 after being admitted following a partial suicide attempt, accompanied at the time by persistent suicidal thoughts and plan, earlier in the month. The patient reports that he did reasonably well in the community following his discharge in January and was feeling "better" for a time. 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 It is not clear if [facility] [employer] [facility] had been notified that the patient was suffering from a medical condition that impaired his ability to perform his essential job duties without special accommodations, and the patient cannot respond to questions in this regard. Perhaps the most striking feature of the patient's current presentation is his gross memory deficits. He is not oriented to time. He is not fully oriented to location. Although he is oriented to person, he tells me that he cannot remember his birthday with certainty. He is oriented to the situation and to a psychiatric unit for treatment of depression. The patient has no lateralizing neurological findings. A cranial CT completed earlier today revealed no intracranial pathology. Reports are that the patient's memory deficits have been present to a far lesser extent during recent months, but that the onset of the currently observed level of confusion occurred around the time that he lost his job at [employer] and became profoundly depressed. He does complain of a fairly persistent frontal headache which is described as steady and "like I got hit in the head or something." (He denies being aware of any recent falls.) He also does not report photophobia or nausea. I believe the best explanation for the patient's memory deficits his sense of derealization, and his other mental status changes is the pseudodementia often associated with severe depression --combined with little or no sleep. The patient tells me that he believes that he has not slept at all for approximately 3 nights, or if he has slept, has been only for brief periods and that he feels "totally exhausted." He does have a history of responding favorably to sertraline 100 mg daily. I will increase his dose of sertraline to 150 mg daily. We will increase his dose of terazosin from 1 mg at bedtime to 3 mg at bedtime for nightmares. I have ordered a brief administration of temazepam 15 mg at bedtime for sleep over the next 3 nights, and have warned him of the risk of physical habituation and potential for falls. I will also start the patient on aripiprazole 5 mg daily, with a starting dose today, as an adjunct to his antidepressant medication. Also, I have offered the patient a one-time dose of clonazepam because he appears tense, anxious and fretful. 03/05 -continue aripiprazole 5 mg every morning, sertraline 150 mg every morning, and prazosin 3 mg at bedtime. -Temazepam 15 mg at bedtime as needed insomnia ordered yesterday but not yet used. -Fasting lipid profile for baseline on an atypical antipsychotic performed today : Cholesterol elevated at 220, remainder of panel within normal limits. Hemoglobin A1c was checked 07/02/2017 and was elevated at 5.7 with an estimated average glucose of 117. He will need to follow-up with his PCP. Present on Admission?: Yes (2) Persistent headaches: 03/05 -continue ibuprofen and acetaminophen as needed. Present on Admission?: Yes Inventory Assets Strengths: Supportive family. Strong work ethic.. History of favorable response to antidepressant medications. Needs: Facing unemployment with attendant financial concerns. Major depressive disorder, recurrent. Suicidal thoughts with plan. Risk Factors Assessment Male: Yes : Yes Do You Have Access To A Gun?: No Health Problems: No Mental Health Diagnoses: Yes Substance Use Disorders: No Previous Attempt: Yes Previous Attempt; Highly Lethal: Yes Previous Attempt; Planned: Yes Previous Attempt; Didn't Tell Anyone: Yes Family History of Suicide: No Previous Psychiatric Hospitalization: Yes Hopelessness: Yes Smoker: No Protective Factors Assessment Methodist Beliefs: Yes : Yes Responsible for Young Children: No Employed: No (Fired from [employer] on Wednesday) Stable Relationships: Yes Supportive Family: Yes Good Rapport with Provider: No Absence of Any Risk Factors Above: No Interval History Identifying Information NATACHA ENCARNACION is a 57-year-old M who currently lives in [facility] with his . He has a history of major depression and was discharged from the behavior health unit approximately two weeks ago. The patient was admitted on06/17 12:33 on a 201 voluntary commitment for depression and suicidal thoughts with a plan. Chief Complaint "In a daze". Review of Systems Notes Poor appetite, headache Sleep Information Total Hours of Sleep: 9.5 Sleep Comments: awake 0600-came out to the day area to check the time. Meal Information Percent Meal Consumed - Dinner: 90 Subjective Subjective Patient was seen & assessed and interval progress reviewed with nursing and social work. Staff report he continues to report depressive symptoms and cognitive impairment. He was started on temazepam and prazosin was increased, aripiprazole was started and sertraline was increased. Today, the patient was seen in his room, stating he woke up with a headache and feels "out of it." He is unsure what medication he takes for headaches at home, although he reports they are chronic, and is unsure if he took medication today for a headache (per review of med list, he received acetaminophen once and ibuprofen twice yesterday , and acetaminophen this morning). He denies side effects to medications. He continues to report low mood, and had suicidal thoughts overnight, stating that he dreamt about committing suicide. Physical Exam Psychiatric Overweight white male appearing his stated age, lying in bed in no acute distress in a darkened room. He is calm and cooperative with the assessment, but a limited historian. Fair eye contact and no abnormal movements. Mood is "in a daze," and affect is restricted to depressed and congruent. Speech is minimal, thoughts are goal-directed but concrete. Paucity of thought content, often stating "I don't know." Endorses SI, denies HI, hallucinations, paranoia , and no delusions are evident. Alert and oriented. Level of intelligence estimated to be below average. Insight and judgment are fair. Vital Signs (Past 24 Hours) Last Vital Signs Temp 36.8 C 03/05/18 06:56 Pulse 73 03/05/18 06:56 Resp 16 03/05/18 06:56 BP 103/72 03/05/18 06:57 Pulse Ox 96 03/04/18 13:16 Results & Data Laboratory Results Laboratory Results - last 24 hr 03/04/18 03/04/18 03/04/18 09:20 09:20 10:10 WBC 5.52 RBC 4.84 Hgb 15.2 Hct 42.6 MCV 88.0 MCH 31.4 MCHC 35.7 RDW Std Deviation 39.1 RDW Coeff of Rose 12.1 Plt Count 139 MPV 10.7 H Immature Gran % (Auto) 0.2 Neut % (Auto) 62.2 Lymph % (Auto) 29.2 [place] % (Auto) 6.7 Eos % (Auto) 1.3 Baso % (Auto) 0.4 Immature Gran # (Auto) 0.01 Neut # (Auto) 3.44 Lymph # (Auto) 1.61 [place] # (Auto) 0.37 Eos # (Auto) 0.07 Baso # (Auto) 0.02 Sodium Potassium Chloride Carbon Dioxide Anion Gap BUN Creatinine Est Cr Clr Drug Dosing Est GFR ( Amer) Est GFR (Non-Af Amer) BUN/Creatinine Ratio Glucose Calcium Total Bilirubin AST ALT Alkaline Phosphatase Total Protein Albumin Globulin Albumin/Globulin Ratio TSH Urine Color Yellow Urine Appearance Clear Urine pH 6.5 Ur Specific [place] 1.020 Urine Protein Negative Urine Glucose (UA) Negative Urine Ketones Negative Urine Blood Negative Urine Nitrite Negative Urine Bilirubin Negative Urine Urobilinogen Negative Ur Leukocyte Esterase Negative Salicylates Urine Opiates Screen Neg Ur Methadone, Qual Neg Acetaminophen Urine Barbiturates Neg Ur Phencyclidine (PCP) Neg U Amphetamin/Meth Scrn Neg MDMA (Ecstasy) Screen Neg U Benzodiazepines Scrn Neg Ur Cocaine Metabolite Neg U Marijuana (THC) Screen Neg Ethyl Alcohol mg/dL 03/04/18 03/04/18 03/04/18 10:10 10:10 10:10 WBC RBC Hgb Hct MCV MCH MCHC RDW Std Deviation RDW Coeff of Rose Plt Count MPV Immature Gran % (Auto) Neut % (Auto) Lymph % (Auto) [place] % (Auto) Eos % (Auto) Baso % (Auto) Immature Gran # (Auto) Neut # (Auto) Lymph # (Auto) [place] # (Auto) Eos # (Auto) Baso # (Auto) Sodium 134 L Potassium 3.5 Chloride 100 Carbon Dioxide 26 Anion Gap 9.0 BUN 15 Creatinine 1.12 Est Cr Clr Drug Dosing 93.3 Est GFR ( Amer) 84.7 Est GFR (Non-Af Amer) 73.0 BUN/Creatinine Ratio 13.7 Glucose 108 H Calcium 9.5 Total Bilirubin 0.7 AST 55 H ALT 103 H Alkaline Phosphatase 64 Total Protein 7.8 Albumin 3.8 Globulin 4.0 Albumin/Globulin Ratio 0.9 TSH 1.800 Urine Color Urine Appearance Urine pH Ur Specific [place] Urine Protein Urine Glucose (UA) Urine Ketones Urine Blood Urine Nitrite Urine Bilirubin Urine Urobilinogen Ur Leukocyte Esterase Salicylates < 1.7 L Urine Opiates Screen Ur Methadone, Qual Acetaminophen < 2 L Urine Barbiturates Ur Phencyclidine (PCP) U Amphetamin/Meth Scrn MDMA (Ecstasy) Screen U Benzodiazepines Scrn Ur Cocaine Metabolite U Marijuana (THC) Screen Ethyl Alcohol mg/dL < 3.0 Current Inpatient Medications Current Inpatient Medications: Current Inpatient Medications Acetaminophen (Tylenol) 650 mg PO Q4H PRN PRN Reason: Headache or Minor Fever Stop: 04/03/18 12:32 Al Hydrox/Mg Hydrox/Simethicone (Maalox) 30 ml PO Q4H PRN PRN Reason: GI Upset Stop: 04/03/18 12:32 Aripiprazole (Abilify) 5 mg PO QAM GIOVANNI Stop: 04/03/18 15:59 Last Admin: 03/04/18 15:25 Dose: 5 mg Bismuth Subsalicylate (Kaopectate) 15 ml PO PRN PRN PRN Reason: Loose Stool Stop: 04/03/18 12:32 Hydroxyzine HCl (Vistaril) 25 mg PO Q4H PRN PRN Reason: Anxiety Stop: 04/03/18 12:32 Hydroxyzine HCl (Vistaril) 50 mg PO HSZ PRN PRN Reason: Insomnia Stop: 04/03/18 12:32 Ibuprofen (Motrin) 600 mg PO Q6H PRN PRN Reason: Headache Stop: 04/03/18 14:45 Last Admin: 03/04/18 16:17 Dose: 600 mg Magnesium Hydroxide (Milk Of Magnesia) 30 ml PO DAILY PRN PRN Reason: Heartburn Stop: 04/03/18 12:32 Prazosin HCl (Prazosin Hcl) 3 mg PO HS GIOVANNI Stop: 04/03/18 21:59 Last Admin: 03/04/18 21:12 Dose: 3 mg Sertraline HCl (Zoloft) 150 mg PO QAM GIOVANNI Stop: 04/04/18 08:59 Sodium Chloride ([place] Nasal) 1 - 2 sprays NA PRN PRN PRN Reason: Nasal Dryness/Congestion Stop: 04/03/18 12:32 Temazepam (Restoril) 15 mg PO HSZ PRN PRN Reason: Insomnia Stop: 03/07/18 14:48 Post Discharge Appointments Primary Care Physician Name Of Family Doctor: Dr Ector Ibrahim Therapist Name of Therapist: [facility] Date of Therapist Appointment: 03/11/18 Stoker Installer Name of Stoker Installer: None CPT Code CPT Code 59430 [id number]
[2018-03-05 07:44] LABS: Chol HDL Ratio 3; Cholesterol 220 mg/dl (0-200); HDL Cholesterol 65 mg/dl; LDL Cholesterol Calculated 132 mg/dl; Triglycerides 116 mg/dl (0-150); VLDL Cholesterol 23 mg/dl
[2018-03-05] MEDS: ARIPiprazole 5 MG TAB PO SCH (09:29)
[2018-03-05] MEDS: IBUPROFEN 600 MG TAB PO PRN ×2 (09:29→16:24)
[2018-03-05] MEDS: SERTRALINE HCL 50 MG TABLET PO SCH (09:30)
[2018-03-05] MEDS: ACETAMINOPHEN 325 MG TAB PO PRN (11:09)
[2018-03-05] MEDS: PRAZOSIN HCL 1 MG CAP PO SCH (21:01)
[2018-03-06] MEDS: ACETAMINOPHEN 325 MG TAB PO PRN (05:43)
[2018-03-06] MEDS: SERTRALINE HCL 50 MG TABLET PO SCH (09:10)
[2018-03-06] MEDS: ARIPiprazole 5 MG TAB PO SCH (09:10)
[2018-03-06] MEDS: IBUPROFEN 600 MG TAB PO PRN (09:12)
--- NOTE | 2018-03-06 09:59 | Psychiatric Progress Note ---
Date of Service March 06, 2018 Impression / Recommendations Impression Patient remains depressed with suicidal thoughts, and has been suffering from debilitating headaches making it difficult for him to participate in the therapy and group aspect of treatment. He has not had a robust response to acetaminophen and ibuprofen as needed, so will give Toradol today. Consider the need for neurological consult given the severity of his headaches. On admission, he was started on multiple new medications to target mood. He will need a family meeting with his once he is able to participate. He continues to require inpatient treatment due to the severity of his symptoms and risk for suicide if discharged. (1) Depression with suicidal ideation: 03/04 - history of recurrent major depressive episodes and presents today with depression and suicidal thoughts with a specific plan to hang himself. He had been discharged in an improved condition from [facility] behavioral health unit on 02/18/2018 after being admitted following a partial suicide attempt, accompanied at the time by persistent suicidal thoughts and plan, earlier in the month. The patient reports that he did reasonably well in the community following his discharge in January and was feeling "better" for a time. 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 It is not clear if [facility] had been notified that the patient was suffering from a medical condition that impaired his ability to perform his essential job duties without special accommodations, and the patient cannot respond to questions in this regard. Perhaps the most striking feature of the patient's current presentation is his gross memory deficits. He is not oriented to time. He is not fully oriented to location. Although he is oriented to person, he tells me that he cannot remember his birthday with certainty. He is oriented to the situation and to a psychiatric unit for treatment of depression. The patient has no lateralizing neurological findings. A cranial CT completed earlier today revealed no intracranial pathology. Reports are that the patient's memory deficits have been present to a far lesser extent during recent months, but that the onset of the currently observed level of confusion occurred around the time that he lost his job at [employer] and became profoundly depressed. He does complain of a fairly persistent frontal headache which is described as steady and "like I got hit in the head or something." (He denies being aware of any recent falls.) He also does not report photophobia or nausea. I believe the best explanation for the patient's memory deficits his sense of derealization, and his other mental status changes is the pseudodementia often associated with severe depression --combined with little or no sleep. The patient tells me that he believes that he has not slept at all for approximately 3 nights, or if he has slept, has been only for brief periods and that he feels "totally exhausted." He does have a history of responding favorably to sertraline 100 mg daily. I will increase his dose of sertraline to 150 mg daily. We will increase his dose of terazosin from 1 mg at bedtime to 3 mg at bedtime for nightmares. I have ordered a brief administration of temazepam 15 mg at bedtime for sleep over the next 3 nights, and have warned him of the risk of physical habituation and potential for falls. I will also start the patient on aripiprazole 5 mg daily, with a starting dose today, as an adjunct to his antidepressant medication. Also, I have offered the patient a one-time dose of clonazepam because he appears tense, anxious and fretful. 15 -continue aripiprazole 5 mg every morning, sertraline 150 mg every morning, and prazosin 3 mg at bedtime. -Temazepam 15 mg at bedtime as needed insomnia ordered yesterday but not yet used. -Fasting lipid profile for baseline on an atypical antipsychotic performed today : Cholesterol elevated at 220, remainder of panel within normal limits. Hemoglobin A1c was checked 07/02/2017 and was elevated at 5.7 with an estimated average glucose of 117. He will need to follow-up with his PCP. (2) Persistent headaches: 03/05 -continue ibuprofen and acetaminophen as needed. 03/06 -ibuprofen and acetaminophen have been poorly effective, with ongoing severe headaches. Patient is a very limited historian and have not been able to clarify the quality of his pain or associated symptoms very well. For now we will treat as tension headaches, as he does not endorse symptoms consistent with migraines or cluster headaches, and does not have signs indicating the presence of a serious underlying disorder such as fever, weight loss, immunocompromise state, seizures, acute neurological changes, acute onset of headache, recent head trauma, illicit drug use or toxic exposure. We will try a one-time dose of Toradol 20 mg today, and then 10 mg every 6 hours as needed, not to exceed 40 mg daily. Will discontinue ibuprofen to limit NSAID exposure. Consider neurological consult if headaches do not improve. Otherwise, he will need to have ongoing treatment as an outpatient. Inventory Assets Strengths: Supportive family. Strong work ethic.. History of favorable response to antidepressant medications. Needs: Facing unemployment with attendant financial concerns. Major depressive disorder, recurrent. Suicidal thoughts with plan. Risk Factors Assessment Male: Yes : Yes Do You Have Access To A Gun?: No Health Problems: No Mental Health Diagnoses: Yes Substance Use Disorders: No Previous Attempt: Yes Previous Attempt; Highly Lethal: Yes Previous Attempt; Planned: Yes Previous Attempt; Didn't Tell Anyone: Yes Family History of Suicide: No Previous Psychiatric Hospitalization: Yes Hopelessness: Yes Smoker: No Protective Factors Assessment Holiness Beliefs: Yes : Yes Responsible for Young Children: No Employed: No (Fired from [employer] on Wednesday) Stable Relationships: Yes Supportive Family: Yes Good Rapport with Provider: No Absence of Any Risk Factors Above: No Interval History Identifying Information NATACHA ENCARNACION is a 57-year-old M who currently lives in [facility] with his . He has a history of major depression and was discharged from the [facility] unit approximately two weeks ago. The patient was admitted on06/17 12:33 on a 201 voluntary commitment for depression and suicidal thoughts with a plan. Chief Complaint "I woke up with this headache". Review of Systems Notes Has had frequent headaches for the past several months, and has had a headache since admission. Denies nausea, vomiting, anorexia, fevers, night sweats, palpitations, diarrhea, and constipation. Sleep Information Total Hours of Sleep: 9 Sleep Comments: awake and out to the day area for headache pain medication around 0545. Meal Information Percent Meal Consumed - Breakfast: 100 Percent Meal Consumed - Lunch: 100 Percent Meal Consumed - Dinner: 100 Subjective Subjective Patient was seen & assessed and interval progress reviewed with Nursing and social work. Staff report the patient slept much of the day yesterday, was up only briefly, and did not go to groups. He is reporting headache, and received both ibuprofen and acetaminophen with minimal relief. He showered, ate his meals without difficulty, and had a phone call from his . He required staff assistance to operate the phone. He woke up early this morning reporting a severe headache. On my assessment, he has just returned to his darkened room after eating breakfast. He continues to report headache symptoms, but is unable to clarify these even when asked and given specific options. He describes the pain as "real bad," but cannot describe the characteristics of the pain even when given a list of options. He says that medications have helped "somewhat," and that the headache makes it difficult for him to think clearly. He denies aura, nausea, vomiting, and says he is not sure if he has photophobia, or what other things exacerbate his headache. He thinks headache started about 3 months ago, and are typically in the frontal area. Mood is " all right I guess," and he says he is "not sure" if he is having suicidal thoughts. He does think he had a disturbing dream, but cannot recall the details or if he had suicidal thoughts last night. Physical Exam Vital Signs (Past 24 Hours) Last Vital Signs Temp 36.6 C 03/06/18 06:49 Pulse 77 03/06/18 06:50 Resp 16 03/06/18 06:49 BP 120/77 03/06/18 06:50 Pulse Ox 96 03/04/18 13:16 Results & Data Current Inpatient Medications Current Inpatient Medications: Current Inpatient Medications Acetaminophen (Tylenol) 650 mg PO Q4H PRN PRN Reason: Headache or Minor Fever Stop: 04/03/18 12:32 Last Admin: 03/06/18 05:43 Dose: 650 mg Al Hydrox/Mg Hydrox/Simethicone (Maalox) 30 ml PO Q4H PRN PRN Reason: GI Upset Stop: 04/03/18 12:32 Aripiprazole (Abilify) 5 mg PO QAM GIOVANNI Stop: 04/03/18 15:59 Last Admin: 03/06/18 09:10 Dose: 5 mg Bismuth Subsalicylate (Kaopectate) 15 ml PO PRN PRN PRN Reason: Loose Stool Stop: 04/03/18 12:32 Hydroxyzine HCl (Vistaril) 25 mg PO Q4H PRN PRN Reason: Anxiety Stop: 04/03/18 12:32 Hydroxyzine HCl (Vistaril) 50 mg PO HSZ PRN PRN Reason: Insomnia Stop: 04/03/18 12:32 Ibuprofen (Motrin) 600 mg PO Q6H PRN PRN Reason: Headache Stop: 04/03/18 14:45 Last Admin: 03/06/18 09:12 Dose: 600 mg Magnesium Hydroxide (Milk Of Magnesia) 30 ml PO DAILY PRN PRN Reason: Heartburn Stop: 04/03/18 12:32 Prazosin HCl (Prazosin Hcl) 3 mg PO HS GIOVANNI Stop: 04/03/18 21:59 Last Admin: 03/05/18 21:01 Dose: 3 mg Sertraline HCl (Zoloft) 150 mg PO QAM GIOVANNI Stop: 04/04/18 08:59 Last Admin: 03/06/18 09:10 Dose: 150 mg Sodium Chloride ([place] Nasal) 1 - 2 sprays NA PRN PRN PRN Reason: Nasal Dryness/Congestion Stop: 04/03/18 12:32 Temazepam (Restoril) 15 mg PO HSZ PRN PRN Reason: Insomnia Stop: 03/07/18 14:48 Post Discharge Appointments Primary Care Physician Name Of Family Doctor: Dr Ector Ibrahim Therapist Name of Therapist: [facility] Date of Therapist Appointment: 03/11/18 Trade Show Specialist Name of Trade Show Specialist: None CPT Code CPT Code 12496
[2018-03-06] MEDS ORDERED: KETOROLAC TROMETHAMINE 10 MG TABLET PO STA (10:00)
[2018-03-06] MEDS: KETOROLAC TROMETHAMINE 10 MG TABLET PO PRN (17:11)
[2018-03-06] MEDS: PRAZOSIN HCL 1 MG CAP PO SCH (21:01)
[2018-03-07] MEDS: SERTRALINE HCL 50 MG TABLET PO SCH (08:25)
[2018-03-07] MEDS: ARIPiprazole 5 MG TAB PO SCH (08:25)
[2018-03-07] MEDS: KETOROLAC TROMETHAMINE 10 MG TABLET PO PRN ×3 (08:25→20:38)
--- NOTE | 2018-03-07 08:39 | Psychiatric Progress Note ---
Date of Service March 07, 2018 Impression / Recommendations Impression Patient remains depressed with suicidal thoughts, with limited ability to participate in groups and therapy. His headaches have improved with Toradol, but are still present. On admission, he was started on multiple new medications to target mood. A family meeting with his is scheduled for tomorrow. He continues to require inpatient treatment due to the severity of his symptoms and risk for suicide if discharged. (1) Depression with suicidal ideation: 1/ - history of recurrent major depressive episodes and presents today with depression and suicidal thoughts with a specific plan to hang himself. He had been discharged in an improved condition from [facility] behavioral health unit on 02/18/2018 after being admitted following a partial suicide attempt, accompanied at the time by persistent suicidal thoughts and plan, earlier in the month. The patient reports that he did reasonably well in the community following his discharge in January and was feeling "better" for a time. 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 It is not clear if [employer] had been notified that the patient was suffering from a medical condition that impaired his ability to perform his essential job duties without special accommodations, and the patient cannot respond to questions in this regard. Perhaps the most striking feature of the patient's current presentation is his gross memory deficits. He is not oriented to time. He is not fully oriented to location. Although he is oriented to person, he tells me that he cannot remember his birthday with certainty. He is oriented to the situation and to a psychiatric unit for treatment of depression. The patient has no lateralizing neurological findings. A cranial CT completed earlier today revealed no intracranial pathology. Reports are that the patient's memory deficits have been present to a far lesser extent during recent months, but that the onset of the currently observed level of confusion occurred around the time that he lost his job at [employer] and became profoundly depressed. He does complain of a fairly persistent frontal headache which is described as steady and "like I got hit in the head or something." (He denies being aware of any recent falls.) He also does not report photophobia or nausea. I believe the best explanation for the patient's memory deficits his sense of derealization, and his other mental status changes is the pseudodementia often associated with severe depression --combined with little or no sleep. The patient tells me that he believes that he has not slept at all for approximately 3 nights, or if he has slept, has been only for brief periods and that he feels "totally exhausted." He does have a history of responding favorably to sertraline 100 mg daily. I will increase his dose of sertraline to 150 mg daily. We will increase his dose of terazosin from 1 mg at bedtime to 3 mg at bedtime for nightmares. I have ordered a brief administration of temazepam 15 mg at bedtime for sleep over the next 3 nights, and have warned him of the risk of physical habituation and potential for falls. I will also start the patient on aripiprazole 5 mg daily, with a starting dose today, as an adjunct to his antidepressant medication. Also, I have offered the patient a one-time dose of clonazepam because he appears tense, anxious and fretful. 03/05 -continue aripiprazole 5 mg every morning, sertraline 150 mg every morning, and prazosin 3 mg at bedtime. -Temazepam 15 mg at bedtime as needed insomnia ordered yesterday but not yet used. -Fasting lipid profile for baseline on an atypical antipsychotic performed today : Cholesterol elevated at 220, remainder of panel within normal limits. Hemoglobin A1c was checked 07/02/2017 and was elevated at 5.7 with an estimated average glucose of 117. He will need to follow-up with his PCP. 03/07 -increase sertraline to 200 mg daily for tomorrow, and continue aripiprazole 5 mg and prazosin 3 mg. -Family meeting with tomorrow. (2) Persistent headaches: 03/05 -continue ibuprofen and acetaminophen as needed. 03/06 -ibuprofen and acetaminophen have been poorly effective, with ongoing severe headaches. Patient is a very limited historian and have not been able to clarify the quality of his pain or associated symptoms very well. For now we will treat as tension headaches, as he does not endorse symptoms consistent with migraines or cluster headaches, and does not have signs indicating the presence of a serious underlying disorder such as fever, weight loss, immunocompromised state, seizures, acute neurological changes, acute onset of headache, recent head trauma, illicit drug use or toxic exposure. We will try a one-time dose of Toradol 20 mg today, and then 10 mg every 6 hours as needed, not to exceed 40 mg daily. Will discontinue ibuprofen to limit NSAID exposure. Consider neurological consult if headaches do not improve. Otherwise, he will need to have ongoing treatment as an outpatient. Inventory Assets Strengths: Supportive family. Strong work ethic.. History of favorable response to antidepressant medications. Needs: Facing unemployment with attendant financial concerns. Major depressive disorder, recurrent. Suicidal thoughts with plan. Risk Factors Assessment Male: Yes : Yes Do You Have Access To A Gun?: No Health Problems: No Mental Health Diagnoses: Yes Substance Use Disorders: No Previous Attempt: Yes Previous Attempt; Highly Lethal: Yes Previous Attempt; Planned: Yes Previous Attempt; Didn't Tell Anyone: Yes Family History of Suicide: No Previous Psychiatric Hospitalization: Yes Hopelessness: Yes Smoker: No Protective Factors Assessment Restoration Beliefs: Yes : Yes Responsible for Young Children: No Employed: No (Fired from [employer] on Wednesday) Stable Relationships: Yes Supportive Family: Yes Good Rapport with Provider: No Absence of Any Risk Factors Above: No Interval History Identifying Information NATACHA ENCARNACION is a 57-year-old M who currently lives in [facility] with his . He has a history of major depression and was discharged from the behavior health unit approximately two weeks ago. The patient was admitted on06/17 12:33 on a 201 voluntary commitment for depression and suicidal thoughts with a plan. Chief Complaint "All right". Review of Systems Notes Headache, no nausea, vomiting, muscle tension. Sleep Information Total Hours of Sleep: 7.25 Sleep Comments: awake and out to the day area for headache pain medication around 0545. Meal Information Percent Meal Consumed - Breakfast: 100 Percent Meal Consumed - Lunch: 100 Percent Meal Consumed - Dinner: 90 Subjective Subjective Patient was seen & assessed and interval progress reviewed with Treatment Team. Staff report headache resolved with Toradol yesterday, and the patient has been out of his room more, but only attending some groups, and has very little participation. A family meeting is scheduled with his tomorrow. He states he feels safe in the hospital, but not at home. On my assessment, he reports that prazosin has been helpful for nightmares, but he still has bad dreams at times, although they are less intense. On my assessment, the patient was seen in his room, where he has returned to bed , stating he has a mild headache. He says his headache resolved yesterday, but started again this morning, although it is much less intense, rating the pain a 2 or 3 out of 10. He does think the Toradol has been helpful. He reports good appetite, and says sleep was disturbed last night by his roommate's snoring. He was moved to another room at his request. He continues to report low mood, although he thinks that it has improved since admission. He says that after discharge from our unit 02/18/2018, he returned home, and never went back to work, as he was informed sometime after [place] that he had been "let go." He says he does not remember why he lost his job, but that he met with "2 guys" who told him he no longer had a job. He does endorse memory problems, stating his memory has been very poor since he started having headaches, and thinking is cloudy. He associates his worsening mood and suicidal thoughts with losing his job, stating that he was "freaked out I would do something, hurt myself." He is hoping to look for a new job after discharge. Physical Exam Mental Examination Overweight white male appearing older than his stated age. Lying in bed in no acute distress in a darkened room. Appropriate dress and grooming. Good eye contact and no abnormal movements. Mood is "all right," and affect is blunted. Thoughts are concrete and goal-directed, with paucity of thought content, often unable to clarify answers when asked. Speech is minimal, normal volume and tone. He endorses suicidal thoughts with concerns that he would "do something to myself" if he were not in the hospital, but feels safe here. No homicidal thoughts, hallucinations, or delusions. Alert and oriented. Level of intelligence estimated to be below average. Insight and judgment are fair. Vital Signs (Past 24 Hours) Last Vital Signs Temp 36.6 C 03/07/18 06:59 Pulse 76 03/07/18 07:00 Resp 16 03/07/18 06:59 BP 131/85 03/07/18 07:00 Pulse Ox 96 03/04/18 13:16 Results & Data Current Inpatient Medications Current Inpatient Medications: Current Inpatient Medications Acetaminophen (Tylenol) 650 mg PO Q4H PRN PRN Reason: Headache or Minor Fever Stop: 04/03/18 12:32 Last Admin: 03/06/18 05:43 Dose: 650 mg Al Hydrox/Mg Hydrox/Simethicone (Maalox) 30 ml PO Q4H PRN PRN Reason: GI Upset Stop: 04/03/18 12:32 Aripiprazole (Abilify) 5 mg PO QAM GIOVANNI Stop: 04/03/18 15:59 Last Admin: 03/07/18 08:25 Dose: 5 mg Bismuth Subsalicylate (Kaopectate) 15 ml PO PRN PRN PRN Reason: Loose Stool Stop: 04/03/18 12:32 Hydroxyzine HCl (Vistaril) 25 mg PO Q4H PRN PRN Reason: Anxiety Stop: 04/03/18 12:32 Hydroxyzine HCl (Vistaril) 50 mg PO HSZ PRN PRN Reason: Insomnia Stop: 04/03/18 12:32 Ketorolac Tromethamine (Toradol) 10 mg PO Q6H PRN PRN Reason: Headache Stop: 04/05/18 09:59 Last Admin: 03/07/18 08:25 Dose: 10 mg Magnesium Hydroxide (Milk Of Magnesia) 30 ml PO DAILY PRN PRN Reason: Heartburn Stop: 04/03/18 12:32 Prazosin HCl (Prazosin Hcl) 3 mg PO HS GIOVANNI Stop: 04/03/18 21:59 Last Admin: 03/06/18 21:01 Dose: 3 mg Sertraline HCl (Zoloft) 150 mg PO QAM GIOVANNI Stop: 04/04/18 08:59 Last Admin: 03/07/18 08:25 Dose: 150 mg Sodium Chloride ([place] Nasal) 1 - 2 sprays NA PRN PRN PRN Reason: Nasal Dryness/Congestion Stop: 04/03/18 12:32 Temazepam (Restoril) 15 mg PO HSZ PRN PRN Reason: Insomnia Stop: 03/07/18 14:48 Post Discharge Appointments Primary Care Physician Name Of Family Doctor: Dr Ector Ibrahim Therapist Name of Therapist: [facility] Date of Therapist Appointment: 03/11/18 Floor Finisher Name of Floor Finisher: None CPT Code CPT Code 65311
[2018-03-07] MEDS: PRAZOSIN HCL 1 MG CAP PO SCH (21:12)
[2018-03-08] MEDS: ACETAMINOPHEN 325 MG TAB PO PRN (07:09)
--- NOTE | 2018-03-08 08:15 | Psychiatric Progress Note ---
Date of Service March 08, 2018 Impression / Recommendations Impression Patient remains depressed with suicidal thoughts, with limited ability to participate in groups and therapy. His headaches have improved with Toradol, but are still present. On admission, he was started on multiple new medications to target mood. A family meeting with his is scheduled for tomorrow. He continues to require inpatient treatment due to the severity of his symptoms and risk for suicide if discharged. (1) Depression with suicidal ideation: 1/ - history of recurrent major depressive episodes and presents today with depression and suicidal thoughts with a specific plan to hang himself. He had been discharged in an improved condition from [facility] behavioral health unit on 02/18/2018 after being admitted following a partial suicide attempt, accompanied at the time by persistent suicidal thoughts and plan, earlier in the month. The patient reports that he did reasonably well in the community following his discharge in January and was feeling "better" for a time. 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 It is not clear if [facility] [facility] had been notified that the patient was suffering from a medical condition that impaired his ability to perform his essential job duties without special accommodations, and the patient cannot respond to questions in this regard. Perhaps the most striking feature of the patient's current presentation is his gross memory deficits. He is not oriented to time. He is not fully oriented to location. Although he is oriented to person, he tells me that he cannot remember his birthday with certainty. He is oriented to the situation and to a psychiatric unit for treatment of depression. The patient has no lateralizing neurological findings. A cranial CT completed earlier today revealed no intracranial pathology. Reports are that the patient's memory deficits have been present to a far lesser extent during recent months, but that the onset of the currently observed level of confusion occurred around the time that he lost his job at [employer] and became profoundly depressed. He does complain of a fairly persistent frontal headache which is described as steady and "like I got hit in the head or something." (He denies being aware of any recent falls.) He also does not report photophobia or nausea. I believe the best explanation for the patient's memory deficits his sense of derealization, and his other mental status changes is the pseudodementia often associated with severe depression --combined with little or no sleep. The patient tells me that he believes that he has not slept at all for approximately 3 nights, or if he has slept, has been only for brief periods and that he feels "totally exhausted." He does have a history of responding favorably to sertraline 100 mg daily. I will increase his dose of sertraline to 150 mg daily. We will increase his dose of terazosin from 1 mg at bedtime to 3 mg at bedtime for nightmares. I have ordered a brief administration of temazepam 15 mg at bedtime for sleep over the next 3 nights, and have warned him of the risk of physical habituation and potential for falls. I will also start the patient on aripiprazole 5 mg daily, with a starting dose today, as an adjunct to his antidepressant medication. Also, I have offered the patient a one-time dose of clonazepam because he appears tense, anxious and fretful. 03/05 -continue aripiprazole 5 mg every morning, sertraline 150 mg every morning, and prazosin 3 mg at bedtime. -Temazepam 15 mg at bedtime as needed insomnia ordered yesterday but not yet used. -Fasting lipid profile for baseline on an atypical antipsychotic performed today : Cholesterol elevated at 220, remainder of panel within normal limits. Hemoglobin A1c was checked 07/02/2017 and was elevated at 5.7 with an estimated average glucose of 117. He will need to follow-up with his PCP. 03/07 -increase sertraline to 200 mg daily for tomorrow, and continue aripiprazole 5 mg and prazosin 3 mg. -Family meeting with tomorrow. (2) Persistent headaches: 03/05 -continue ibuprofen and acetaminophen as needed. 03/06 -ibuprofen and acetaminophen have been poorly effective, with ongoing severe headaches. Patient is a very limited historian and have not been able to clarify the quality of his pain or associated symptoms very well. For now we will treat as tension headaches, as he does not endorse symptoms consistent with migraines or cluster headaches, and does not have signs indicating the presence of a serious underlying disorder such as fever, weight loss, immunocompromised state, seizures, acute neurological changes, acute onset of headache, recent head trauma, illicit drug use or toxic exposure. We will try a one-time dose of Toradol 20 mg today, and then 10 mg every 6 hours as needed, not to exceed 40 mg daily. Will discontinue ibuprofen to limit NSAID exposure. Consider neurological consult if headaches do not improve. Otherwise, he will need to have ongoing treatment as an outpatient. Inventory Assets Strengths: Supportive family. Strong work ethic.. History of favorable response to antidepressant medications. Needs: Facing unemployment with attendant financial concerns. Major depressive disorder, recurrent. Suicidal thoughts with plan. Risk Factors Assessment Male: Yes : Yes Do You Have Access To A Gun?: No Health Problems: No Mental Health Diagnoses: Yes Substance Use Disorders: No Previous Attempt: Yes Previous Attempt; Highly Lethal: Yes Previous Attempt; Planned: Yes Previous Attempt; Didn't Tell Anyone: Yes Family History of Suicide: No Previous Psychiatric Hospitalization: Yes Hopelessness: Yes Smoker: No Protective Factors Assessment Restorationism Beliefs: Yes : Yes Responsible for Young Children: No Employed: No (Fired from [employer] on Wednesday) Stable Relationships: Yes Supportive Family: Yes Good Rapport with Provider: No Absence of Any Risk Factors Above: No Interval History Identifying Information NATACHA ENCARNACION is a 57-year-old M who currently lives in [facility] with his . He has a history of major depression and was discharged from the behavior health unit approximately two weeks ago. The patient was admitted on06/17 12:33 on a 201 voluntary commitment for depression and suicidal thoughts with a plan. Chief Complaint "[]". Review of Systems Sleep Information Total Hours of Sleep: 7.25 Sleep Comments: pt on q-15 minute checks Meal Information Percent Meal Consumed - Breakfast: 100 Percent Meal Consumed - Lunch: 100 Percent Meal Consumed - Dinner: 100 Subjective Subjective Patient was seen & assessed and interval progress reviewed with Nursing and social work. Staff report. Physical Exam Vital Signs (Past 24 Hours) Last Vital Signs Temp 36.8 C 03/08/18 06:58 Pulse 76 03/08/18 06:59 Resp 16 03/08/18 06:58 BP 132/83 03/08/18 06:59 Pulse Ox 96 03/04/18 13:16 Results & Data Current Inpatient Medications Current Inpatient Medications: Current Inpatient Medications Acetaminophen (Tylenol) 650 mg PO Q4H PRN PRN Reason: Headache or Minor Fever Stop: 04/03/18 12:32 Last Admin: 03/08/18 07:09 Dose: 650 mg Al Hydrox/Mg Hydrox/Simethicone (Maalox) 30 ml PO Q4H PRN PRN Reason: GI Upset Stop: 04/03/18 12:32 Aripiprazole (Abilify) 5 mg PO QAM GIOVANNI Stop: 04/03/18 15:59 Last Admin: 03/07/18 08:25 Dose: 5 mg Bismuth Subsalicylate (Kaopectate) 15 ml PO PRN PRN PRN Reason: Loose Stool Stop: 04/03/18 12:32 Hydroxyzine HCl (Vistaril) 25 mg PO Q4H PRN PRN Reason: Anxiety Stop: 04/03/18 12:32 Hydroxyzine HCl (Vistaril) 50 mg PO HSZ PRN PRN Reason: Insomnia Stop: 04/03/18 12:32 Ketorolac Tromethamine (Toradol) 10 mg PO Q6H PRN PRN Reason: Headache Stop: 04/05/18 09:59 Last Admin: 03/07/18 20:38 Dose: 10 mg Magnesium Hydroxide (Milk Of Magnesia) 30 ml PO DAILY PRN PRN Reason: Heartburn Stop: 04/03/18 12:32 Prazosin HCl (Prazosin Hcl) 3 mg PO HS GIOVANNI Stop: 04/03/18 21:59 Last Admin: 03/07/18 21:12 Dose: 3 mg Sertraline HCl (Zoloft) 200 mg PO QAM GIOVANNI Stop: 04/07/18 08:59 Sodium Chloride ([place] Nasal) 1 - 2 sprays NA PRN PRN PRN Reason: Nasal Dryness/Congestion Stop: 04/03/18 12:32 Post Discharge Appointments Primary Care Physician Name Of Family Doctor: Dr Ector Ibrahim Therapist Name of Therapist: [facility] Date of Therapist Appointment: 03/11/18 Electrotyper Helper Name of Electrotyper Helper: None Contact Information Discharge Discharge Address: [address], [place] [id number] CPT Code CPT Code [id number]
[2018-03-08] MEDS ORDERED: SERTRALINE HCL 50 MG TABLET PO SCH (09:00)
[2018-03-08] MEDS: ARIPiprazole 5 MG TAB PO SCH (09:25)
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
== END 2018-03-08 15:17 | disposition home or self-care (01) | DRG 885 ==
LOC: ED 08:43 → 3S 12:16 → SUATTDRO 12:33 → 3S 12:33

== ENCOUNTER 2018-04-04 21:51 | Observation (INO) ==
[2018-04-04 22:40] LABS: Basophils # (auto) 0.02 K/uL (0-0.2); Basophils % (auto) 0.3 %; Eosinophils # (auto) 0.04 K/uL (0-0.5); Eosinophils % (auto) 0.6 %; Hematocrit (blood only) 39.6 % (42-52); Hemoglobin 14.5 g/dL (14.0-18.0); Lymphocytes # (auto) 1.49 K/uL (1.2-3.4); Mean Corpuscular Hgb Conc 36.6 g/dL (32-36); Mean Platelet Volume 10.9 fL (7.4-10.4); Monocytes # (auto) 0.63 K/uL (0.11-0.59); Monocytes % (auto) 10.1 %; Neutrophils # (auto) 4.04 K/uL (1.4-6.5); Platelet Count 118 K/uL (130-400); RDW Coefficient of Variation 12.2 % (11.5-14.5); RDW Standard Deviation 37.4 fL (36.4-46.3); Red Blood Count 4.66 M/uL (4.7-6.1); White Blood Count 6.22 K/uL (4.8-10.8)
[2018-04-04 22:59] LABS: Alanine Aminotransferase 121 U/L (12-78); Albumin Level 3.9 gm/dl (3.4-5.0); Aspartate Aminotransferase 61 U/L (15-37); BUN Creatinine Ratio 13.5 (10-20); Blood Urea Nitrogen 19 mg/dl (7-18); Calcium 8.6 mg/dl (8.5-10.1); Carbon Dioxide 25 mmol/L (21-32); Chloride 93 mmol/L (98-107); Creatinine Clr Calc Pharmacy 75.9 ml/min; Est GFR (African American) 66.4; Est GFR (Non-African American) 57.2; Glucose 220 mg/dl (70-99); Potassium 2.9 mmol/L (3.5-5.1); Sodium 130 mmol/L (136-145)
[2018-04-04 23:10] LABS: Albumin Globulin Ratio 1.1 (0.9-2); Alkaline Phosphatase 68 U/L (45-117); Bilirubin,Total 0.5 mg/dl (0.2-1); Globulin 3.6 gm/dl (2.5-4.0); Total Protein 7.5 gm/dl (6.4-8.2); Troponin I < 0.015 ng/ml (0-0.045)
[2018-04-04] MEDS ORDERED: LORazepam 1 MG TAB SL STA (23:44)
[2018-04-04 23:57] LABS: Magnesium 1.8 mg/dl (1.8-2.4)
[2018-04-05 01:22] LABS: Appearance Urine Clear (Clear); Bilirubin Urine Negative (Negative); Color Urine Yellow; Glucose Urine UA Negative (Negative); Ketones Urine Trace (Negative); Leukocyte Esterase Urine Negative (Negative); Nitrite Urine Negative (Negative); Protein Urine Negative (Negative); Specific Gravity Urine 1.012 (1.000-1.030); Urobilinogen Urine Negative (Negative)
[2018-04-05 01:46] LABS: Amphetamines+Metham, Urine Neg (Neg); Barbiturates, Urine Neg (Neg); Benzodiazepine, Urine Neg (Neg); Cocaine, Urine Neg (Neg); MDMA (Ecstacy), Urine Neg (Neg); Methadone, Urine Neg (Neg); Opiate, Urine Neg (Neg); Phencyclidine, Urine Neg (Neg)
--- NOTE | 2018-04-05 03:03 | Emergency Department Note ---
History of Present Illness General Chief complaint: Syncope Stated complaint: NEAR SYNCOPE, SYNCOPE Time Seen by Provider: 04/04/18 22:33 History of Present Illness This is a 57-year-old male that presents to the emergency department via ambulance accompanied by female with complaints of "syncope". The patient notes that he ate dinner around 430 to 5:00. He then notes that he took his new blood pressure medication around 8:20 PM. He notes that he is not sure what it is but did take 3 pills of which he thought he was prescribed. This is the second day of taking this medication. He notes about half an hour later he began to feel very dizzy, and as he was walking the female in the room notes that he turned very pale, was diaphoretic and then sat down and passed out for less than 1 minute. #1 was called. Upon arrival EMS note that he was alert and oriented. Patient notes a history of vertigo and feels similar. He received 4 mg of Zofran and 1 L of fluid in route. He denies taking other medication besides his prescribed meds. He denies any chest pain, shortness of breath, fevers, pain. Home Medications Home Medications Medication Instructions Recorded Confirmed Type amiloride-hydrochlorothiazide 1 tab PO QAM 11/19/17 04/05/18 History hydroxyzine HCl 50 mg PO HS PRN #10 tab 02/18/18 04/05/18 Rx prazosin 3 mg PO HS #90 cap 03/08/18 04/05/18 Rx sertraline 200 mg PO DAILY #60 tab 03/08/18 04/05/18 Rx meclizine 25 mg PO TID PRN 04/05/18 04/05/18 History omeprazole 40 mg PO HS 04/05/18 04/05/18 History Allergies Allergy/AdvReac Type Severity Reaction Status Date / Time No Known Allergies Allergy Verified 04/05/18 00:10 Past Med/Surg History Medical History GERD (gastroesophageal reflux disease) (Chronic) Osteoarthritis (Chronic) Dyslexia (Chronic) Hypertension (Chronic) Benign positional vertigo (Chronic) Hypertension (Resolved) Vertigo (Resolved) Surgical History History of tooth extraction (Resolved) History of colonoscopy (Resolved) History of open reduction and internal fixation (ORIF) procedure (Resolved) RT Family History Mother Family history of diabetes mellitus Social History Current Living Situation: Spouse Feels Safe at Home: Yes Smoking Status: Never smoker Second Hand Exposure: No Hx Alcohol Use: Yes Alcohol type: beer Alcohol Intake Frequency: a few times a month Hx Substance Use: No Beliefs That Will Affect Care: Nondenominational Nondenominational Beliefs: UATSDIN Preferred Language: Armenian Review of Systems A total of 10 systems reviewed and were otherwise negative Physical Exam Vital Signs Vital Signs - 24 hr 04/04/18 22:00 04/04/18 23:36 04/05/18 01:09 Temperature 37.3 C Temperature Source Oral Sepsis Recent Fever Within 48 Hours No Sepsis New/Unexplained Change in Mental Status No Sepsis Action Taken by Nursing No Action Required Pulse Rate 68 Pulse Rate [Apical] 74 71 Pulse Rhythm Regular Pulse Strength Normal Respiratory Rate 24 19 20 Respiratory Effort / Characteristics Non-Labored Spontaneous Non-Labored Spontaneous Respiratory Depth Normal Normal Respiratory Pattern Regular Blood Pressure 124/70 Blood Pressure [Left Arm] 101/71 122/79 Blood Pressure Mean 88 Blood Pressure Mean [Left Arm] 81 93 Blood Pressure Position Sitting Blood Pressure Position [Left Arm] Sitting Pulse Oximetry 100 97 95 Oxygen Delivery Method Room Air Room Air Room Air 04/05/18 02:45 Temperature Temperature Source Sepsis Recent Fever Within 48 Hours Sepsis New/Unexplained Change in Mental Status Sepsis Action Taken by Nursing Pulse Rate 76 Pulse Rate [Apical] Pulse Rhythm Pulse Strength Respiratory Rate 17 Respiratory Effort / Characteristics Respiratory Depth Respiratory Pattern Blood Pressure 121/78 Blood Pressure [Left Arm] Blood Pressure Mean Blood Pressure Mean [Left Arm] Blood Pressure Position Blood Pressure Position [Left Arm] Pulse Oximetry 93 Oxygen Delivery Method Room Air VITAL SIGNS - Vital signs and nursing notes were reviewed. Stable. GENERAL - 57-year-old male appearing his stated age who is in no acute distress. Communicates well with provider and answers questions appropriately. SKIN - Without rashes. HEAD - NC/AT. EYES - PERRL with EOMI bilaterally. Sclera anicteric. EARS - No deformities of external structures noted on gross examination bilaterally. External auditory canals without discharge or otorrhea. Tympanic membranes pearly negrete without retraction or bulging. No fluid or purulent material visualized behind the TM. Handle of malleus, umbo, cone of light, pars tensa/flaccid all easily visualized. NOSE - Midline and without cyanosis. No epistaxis or purulent drainage noted. MOUTH/OROPHARYNX - Without perioral cyanosis. Buccal mucosa pink and moist and without leukoplakia. Tongue midline with equal elevation of palate bilaterally. No tonsillar hypertrophy, erythema, or exudates noted. Fair dentition noted. NECK - Neck with FROM. Supple to palpation. No lymphadenopathy noted. No nuchal rigidity. LUNGS - Chest wall symmetric without accessory muscle use, intercostals retractions, or central cyanosis. Normal vesicular breath sounds CTA B/L. No wheezes, rales, or rhonchi appreciated. CARDIAC - RRR with S1/S2. No murmur, rubs, or gallops appreciated. ABDOMEN - Abdominal contour normal without pulsations or visible masses. BS normoactive all four quadrants. No tenderness, palpable masses, hepatosplenomegaly, or ascites noted. EXTREMITIES - No clubbing or peripheral cyanosis. No pretibial edema present. + 5/5 strength noted in UE/LE bilaterally. NEUROLOGIC - Cranial nerves II through XII grossly intact. Sensory intact to light touch throughout. P PSYCH - A&Ox3 and cooperates fully with examiner. Pt is very pleasant and interacts well with examiner. Course Administered Medications Discontinued Medications Lorazepam (Ativan) 0.5 mg SL NOW STA Stop: 04/04/18 23:45 Last Admin: 04/05/18 00:36 Dose: 0.5 mg Medical Decision Making Laboratory Data Result diagrams: 04/04/18 22:26 04/04/18 22:26 Lab Results 04/04/18 04/04/18 04/05/18 Range/Units 22:26 22:26 01:05 WBC 6.22 (4.8-10.8) K/uL RBC 4.66 L (4.7-6.1) M/uL Hgb 14.5 (14.0-18.0) g/dL Hct 39.6 L (42-52) % MCV 85.0 (80-100) fL MCH 31.1 (25-34) pg MCHC 36.6 H (32-36) g/dL RDW Std Deviation 37.4 (36.4-46.3) fL RDW Coeff of Rose 12.2 (11.5-14.5) % Plt Count 118 L (130-400) K/uL MPV 10.9 H (7.4-10.4) fL Immature Gran % (Auto) 0.0 % Neut % (Auto) 65.0 % Lymph % (Auto) 24.0 % [place] % (Auto) 10.1 % Eos % (Auto) 0.6 % Baso % (Auto) 0.3 % Immature Gran # (Auto) 0.00 (0.00-0.02) K/uL Neut # (Auto) 4.04 (1.4-6.5) K/uL Lymph # (Auto) 1.49 (1.2-3.4) K/uL [place] # (Auto) 0.63 H (0.11-0.59) K/uL Eos # (Auto) 0.04 (0-0.5) K/uL Baso # (Auto) 0.02 (0-0.2) K/uL Sodium 130 L (136-145) mmol/L Potassium 2.9 L (3.5-5.1) mmol/L Chloride 93 L (98-107) mmol/L Carbon Dioxide 25 (21-32) mmol/L Anion Gap 12.0 H (3-11) BUN 19 H (7-18) mg/dl Creatinine 1.37 (0.6-1.4) mg/dl Est Cr Clr Drug Dosing 75.9 ml/min Est GFR ( Amer) 66.4 Est GFR (Non-Af Amer) 57.2 BUN/Creatinine Ratio 13.5 (10-20) Glucose 220 H (70-99) mg/dl Calcium 8.6 (8.5-10.1) mg/dl Magnesium 1.8 (1.8-2.4) mg/dl Total Bilirubin 0.5 (0.2-1) mg/dl AST 61 H (15-37) U/L ALT 121 H (12-78) U/L Alkaline Phosphatase 68 (45-117) U/L Troponin I < 0.015 (0-0.045) ng/ml Total Protein 7.5 (6.4-8.2) gm/dl Albumin 3.9 (3.4-5.0) gm/dl Globulin 3.6 (2.5-4.0) gm/dl Albumin/Globulin Ratio 1.1 (0.9-2) TSH 1.740 (0.300-4.500) uIu/ml Urine Color Yellow Urine Appearance Clear (Clear) Urine pH 6.0 (4.5-7.5) Ur Specific [place] 1.012 (1.000-1.030) Urine Protein Negative (Negative) Urine Glucose (UA) Negative (Negative) Urine Ketones Trace H (Negative) Urine Blood Negative (Negative) Urine Nitrite Negative (Negative) Urine Bilirubin Negative (Negative) Urine Urobilinogen Negative (Negative) Ur Leukocyte Esterase Negative (Negative) Urine Opiates Screen (Neg) Ur Methadone, Qual (Neg) Urine Barbiturates (Neg) Ur Phencyclidine (PCP) (Neg) U Amphetamin/Meth Scrn (Neg) MDMA (Ecstasy) Screen (Neg) U Benzodiazepines Scrn (Neg) Ur Cocaine Metabolite (Neg) U Marijuana (THC) Screen (Neg) 04/05/18 Range/Units 01:05 WBC (4.8-10.8) K/uL RBC (4.7-6.1) M/uL Hgb (14.0-18.0) g/dL Hct (42-52) % MCV (80-100) fL MCH (25-34) pg MCHC (32-36) g/dL RDW Std Deviation (36.4-46.3) fL RDW Coeff of Rose (11.5-14.5) % Plt Count (130-400) K/uL MPV (7.4-10.4) fL Immature Gran % (Auto) % Neut % (Auto) % Lymph % (Auto) % [place] % (Auto) % Eos % (Auto) % Baso % (Auto) % Immature Gran # (Auto) (0.00-0.02) K/uL Neut # (Auto) (1.4-6.5) K/uL Lymph # (Auto) (1.2-3.4) K/uL [place] # (Auto) (0.11-0.59) K/uL Eos # (Auto) (0-0.5) K/uL Baso # (Auto) (0-0.2) K/uL Sodium (136-145) mmol/L Potassium (3.5-5.1) mmol/L Chloride (98-107) mmol/L Carbon Dioxide (21-32) mmol/L Anion Gap (3-11) BUN (7-18) mg/dl Creatinine (0.6-1.4) mg/dl Est Cr Clr Drug Dosing ml/min Est GFR ( Amer) Est GFR (Non-Af Amer) BUN/Creatinine Ratio (10-20) Glucose (70-99) mg/dl Calcium (8.5-10.1) mg/dl Magnesium (1.8-2.4) mg/dl Total Bilirubin (0.2-1) mg/dl AST (15-37) U/L ALT (12-78) U/L Alkaline Phosphatase (45-117) U/L Troponin I (0-0.045) ng/ml Total Protein (6.4-8.2) gm/dl Albumin (3.4-5.0) gm/dl Globulin (2.5-4.0) gm/dl Albumin/Globulin Ratio (0.9-2) TSH (0.300-4.500) uIu/ml Urine Color Urine Appearance (Clear) Urine pH (4.5-7.5) Ur Specific [place] (1.000-1.030) Urine Protein (Negative) Urine Glucose (UA) (Negative) Urine Ketones (Negative) Urine Blood (Negative) Urine Nitrite (Negative) Urine Bilirubin (Negative) Urine Urobilinogen (Negative) Ur Leukocyte Esterase (Negative) Urine Opiates Screen Neg (Neg) Ur Methadone, Qual Neg (Neg) Urine Barbiturates Neg (Neg) Ur Phencyclidine (PCP) Neg (Neg) U Amphetamin/Meth Scrn Neg (Neg) MDMA (Ecstasy) Screen Neg (Neg) U Benzodiazepines Scrn Neg (Neg) Ur Cocaine Metabolite Neg (Neg) U Marijuana (THC) Screen Neg (Neg) Imaging Data Radiologist's Impression: Chest one view portable: No active disease in the chest. MDM Narrative Patient was seen and evaluated as above in room a 9. Review was performed of nursing notes and vital signs. After obtaining a thorough history and physical examination the above work up was performed. He presents to us today status post syncopal event. He is on new blood pressure medication per patient. He is nontoxic on exam. He has vomited about 4 times since being here. He notes he feels quite dizzy. He has a history of vertigo. Chest one view portable at this time does not reveal any acute process. EKG reveals normal sinus rhythm, rate of 69 bpm. No evidence of MT. Prolonged QT noted. Blood work was obtained. No significant leukocytosis. No emergent anemia. Sodium low at 130 , potassium 2.9, evidence of dehydration with BUN at 19. Troponin negative. Urinalysis and drug screen not reveal any emergent process. He was given Ativan here for his dizziness. Given the patient's presentation, dizziness, prolonged QT state and syncopal event do believe that further evaluation and management is warranted in the inpatient setting. His EKG repeat was normal, however given the patient's symptoms do believe that further evaluation is warranted. Patient was happy with this. Case discussed with the attending physician as well as the hospitalist. Please refer to further documentation regarding his stay. Case was discussed with the attending physician. In the evaluation and treatment of this patient, the following differential diagnoses were considered: Migraine Headache, Intracranial Hemorrhage, Subdural Hematoma, Subarachnoid Hemorrhage, Cerebral Aneurysm, Temporal/Giant Cell Arteritis, Tension Headache, Meningitis, Encephalitis, or Hydrocephalus, MT, ASC , Dysrhythmia, Angina, Mediastinitis, GERD, Esophagitis, PE, Pneumonia, Bronchitis, Costochondritis, Rib Fracture, Zoster, among others. Impression & Plan Syncope, Dizziness Discharge Plan Visit Data Chief Complaint: Syncope Stated Complaint: NEAR SYNCOPE, SYNCOPE ED Provider: George Pollack ED Midlevel Provider: Guy Moss Discharge Problem: Syncope, Dizziness Patient Disposition: Being Evaluated by Hospitalist Discharge Instructions Interventions: ED Discharge Assessment Last Done: 04/05/18 02:45 Prescriptions Prescriptions: No Action amiloride-hydrochlorothiazide 5-50 mg Tablet 1 tab PO QAM RF: 0 prazosin 1 mg capsule 3 mg PO HS Qty: 90 RF: 0 sertraline 100 mg tablet 200 mg PO DAILY Qty: 60 RF: 0 omeprazole 40 mg Capsule,Delayed Release(Dr/Ec) 40 mg PO HS RF: 0 meclizine 25 mg Tablet 25 mg PO TID PRN (Reason: Dizziness) RF: 0 hydroxyzine HCl 25 mg Tablet 50 mg PO HS PRN (Reason: Sleep) Qty: 10 RF: 5
[2018-04-05] MEDS ORDERED: ALUMINUM/MAGNESIUM SUSP 30 ML UDC PO PRN (03:21)
[2018-04-05] MEDS ORDERED: ONDANSETRON INJ 2 MG/ML 2 ML VIAL IV PRN (03:21)
[2018-04-05] MEDS ORDERED: MAGNESIUM HYDROXIDE SUSP 30 ML UDC PO PRN (03:21)
[2018-04-05] MEDS ORDERED: POLYETHYLENE (MIRALAX) 17 GM PACK PO PRN (03:21)
[2018-04-05] MEDS ORDERED: MECLIZINE HCL 25 MG TAB PO PRN (03:21)
--- NOTE | 2018-04-05 04:12 | History & Physical Report ---
Date of Service April 05, 2018 Assessment & Plan (1) Syncope: By history appears to be a side effect of a blood pressure medication taken before bed. Medication review shows prazosin 3 mg at bedtime, with recent refill showing 90 pills. Likely took prazosin 9 mg and developed orthostatic hypotension. We will hold both amiloride/HCTZ and prazosin for now. Follow on telemetry for possible arrythmia. Present on Admission?: Yes (2) Hypertension: Hold prazosin as noted for possible orthostatic hypotension. Hold amiloride/HCTZ due to hyponatremia and hypokalemia. Place on NSS + KCl 20 MEQ at 100mls/hr. Repeat BMP and Mag in AM Present on Admission?: Yes (3) GERD (gastroesophageal reflux disease): continue omeprazole Present on Admission?: Yes (4) Benign positional vertigo: continue meclizine prn Present on Admission?: Yes (5) Depression: continue sertraline Present on Admission?: Yes History of Present Illness Chief Complaint: The patient presents to the emergency department via ambulance after an episode of syncope following his prescription medications taken this evening. Primary Care Provider: Laurence Rangel MD The patient is a 57-year-old male with past medical history including hypertension, vertigo, depression and GERD, who reportedly was prescribed a new medication, of which he took 3 pills this evening as directed, then about 30 minutes later he became sweaty, sat down and then passed out for was thought to be less than a minute. Upon arrival of EMS he was alert and oriented, and was given Zofran en route along with 1 L of normal saline. Upon arrival in the ED, the patient was back to his baseline. At the time of my examination, he primarily reported feeling a little bit tired. Allergies Allergy/AdvReac Type Severity Reaction Status Date / Time No Known Allergies Allergy Verified 04/05/18 00:10 Home Medications Home Medications Medication Instructions Recorded Confirmed Type amiloride-hydrochlorothiazide 1 tab PO QAM 11/19/17 04/05/18 History hydroxyzine HCl 50 mg PO HS PRN #10 tab 02/18/18 04/05/18 Rx prazosin 3 mg PO HS #90 cap 03/08/18 04/05/18 Rx sertraline 200 mg PO DAILY #60 tab 03/08/18 04/05/18 Rx meclizine 25 mg PO TID PRN 04/05/18 04/05/18 History omeprazole 40 mg PO HS 04/05/18 04/05/18 History Past Med/Surg History Medical History GERD (gastroesophageal reflux disease) (Chronic) Osteoarthritis (Chronic) Dyslexia (Chronic) Hypertension (Chronic) Benign positional vertigo (Chronic) Hypertension (Resolved) Vertigo (Resolved) Surgical History History of tooth extraction (Resolved) History of colonoscopy (Resolved) History of open reduction and internal fixation (ORIF) procedure (Resolved) RT Family History Mother Family history of diabetes mellitus Social History Current Living Situation: Family Other Information That Helps Us Care for You: No Feels Safe at Home: Yes Safety Concerns: Feels Safe At This Time Smoking Status: Never smoker Do You Dip or Chew Tobacco: No Hx Alcohol Use: No Hx Substance Use: No Beliefs That Will Affect Care: None Communication Ability: Effective Review of Systems The patient denies chest pain, palpitations, shortness of breath, dyspnea on exertion, cough, lower extremity swelling, sore throat, fevers, chills, sweats, weight change, nausea, vomiting, diarrhea , constipation, abdominal pain, pelvic pain, blood in urine or stool, dysuria, urinary frequency or urgency, headache, rash , abnormal bruising or bleeding, imbalance, focal or generalized weakness, numbness or tingling in arms or legs, generalized arthralgias or myalgias, back or neck pain, or night sweats. The review of systems is otherwise negative other than for that already noted above, and at least 10 systems have been reviewed. Physical Exam 2 Vital Signs (Past 24 Hours): Last Vital Signs Temp 36.8 C 04/05/18 03:13 Pulse 80 04/05/18 03:13 Resp 18 04/05/18 03:13 BP 132/82 04/05/18 03:13 Pulse Ox 96 04/05/18 03:13 Physical Exam: The patient is awake, alert and oriented 3, well developed and well nourished, normocephalic and atraumatic, lying in bed and in no acute distress. HEENT--PERRL, EOMI, mucous membranes and oropharynx dry. Neck--supple. No JVD. No bruits. Thyroid normal, trachea midline, no adenopathy. Heart--normal S1 and S2. No murmurs, rubs or gallops. Lungs--clear bilaterally, no respiratory distress, no accessory muscle use. Abdomen--normal bowel sounds and soft. Nontender. Nondistended, no hernias or masses, no organomegaly. Extremities--no cyanosis or clubbing. No edema. There are good distal pulses b/ l. Dermatologic--normal skin turgor, normal color, no abnormal lymph nodes, no rash. Neurologic--cranial nerves II through XII grossly intact. Rheumatologic--normal range of motion. Psychiatric--normal affect. Results & Data Laboratory Results Laboratory Results WBC 6.22 K/uL (4.8-10.8) 04/04/18 22: RBC 4.66 M/uL (4.7-6.1) L 04/04/18 22: Hgb 14.5 g/dL (14.0-18.0) 04/04/18: Hct 39.6 % (42-52) L 04/04/18: MCV 85.0 fL (80-100) 04/04/18 22: MCH 31.1 pg (25-34) 04/04/18: MCHC 36.6 g/dL (32-36) H 04/04/18: RDW Std Deviation 37.4 fL (36.4-46.3) 04/04/18: RDW Coeff of Rose 12.2 % (11.5-14.5) 04/04/18: Plt Count 118 K/uL (130-400) L 04/04/18: MPV 10.9 fL (7.4-10.4) H 04/04/18 22: Immature Gran % (Auto) 0.0 % 04/04/18: Neut % (Auto) 65.0 % 04/04/18: Lymph % (Auto) 24.0 % 02/04/19 22:26 [place] % (Auto) 10.1 % 04/04/18 22:26 Eos % (Auto) 0.6 % 04/04/18 22:26 Baso % (Auto) 0.3 % 04/04/18: Immature Gran # (Auto) 0.00 K/uL (0.00-0.02) 04/04/18 22:26 Neut # (Auto) 4.04 K/uL (1.4-6.5) 04/04/18: Lymph # (Auto) 1.49 K/uL (1.2-3.4) 04/04/18: [place] # (Auto) 0.63 K/uL (0.11-0.59) H 04/04/18 22: Eos # (Auto) 0.04 K/uL (0-0.5) 04/04/18: Baso # (Auto) 0.02 K/uL (0-0.2) 04/04/18 22:26 Sodium 130 mmol/L (136-145) L 04/04/18 22:26 Potassium 2.9 mmol/L (3.5-5.1) L 04/04/18 22:26 Chloride 93 mmol/L (98-107) L 04/04/18 22:26 Carbon Dioxide 25 mmol/L (21-32) 04/04/18 22:26 Anion Gap 12.0 (3-11) H 04/04/18 22:26 BUN 19 mg/dl (7-18) H 04/04/18 22:26 Creatinine 1.37 mg/dl (0.6-1.4) 04/04/18 22: Est Cr Clr Drug Dosing 75.9 ml/min 04/04/18 22:26 Est GFR ( Amer) 66.4 04/04/18 22:26 Est GFR (Non-Af Amer) 57.2 04/04/18 22:26 BUN/Creatinine Ratio 13.5 (10-20) 04/04/18 22: Glucose 220 mg/dl (70-99) H 04/04/18 22:26 Calcium 8.6 mg/dl (8.5-10.1) 04/04/18 22: Magnesium 1.8 mg/dl (1.8-2.4) 02/04/19 22:26 Total Bilirubin 0.5 mg/dl (0.2-1) 04/04/18 22:26 AST 61 U/L (15-37) H 04/04/18 22: ALT 121 U/L (12-78) H 04/04/18 22:26 Alkaline Phosphatase 68 U/L (45-117) 04/04/18 22:26 Troponin I < 0.015 ng/ml (0-0.045) 04/04/18 22:26 Total Protein 7.5 gm/dl (6.4-8.2) 04/04/18 22: Albumin 3.9 gm/dl (3.4-5.0) 04/04/18 22: Globulin 3.6 gm/dl (2.5-4.0) 04/04/18 22: Albumin/Globulin Ratio 1.1 (0.9-2) 04/04/18 22: TSH 1.740 uIu/ml (0.300-4.500) 04/04/18 22:26 Urine Color Yellow 04/05/18 01:05 Urine Appearance Clear (Clear) 04/05/18 01:05 Urine pH 6.0 (4.5-7.5) 04/05/18 01:05 Ur Specific [place] 1.012 (1.000-1.030) 04/05/18 01:05 Urine Protein Negative (Negative) 04/05/18 01:05 Urine Glucose (UA) Negative (Negative) 04/05/18 01:05 Urine Ketones Trace (Negative) H 04/05/18 01:05 Urine Blood Negative (Negative) 04/05/18 01:05 Urine Nitrite Negative (Negative) 04/05/18 01:05 Urine Bilirubin Negative (Negative) 04/05/18 01:05 Urine Urobilinogen Negative (Negative) 04/05/18 01:05 Ur Leukocyte Esterase Negative (Negative) 04/05/18 01:05 Urine Opiates Screen Neg (Neg) 04/05/18 01:05 Ur Methadone, Qual Neg (Neg) 04/05/18 01:05 Urine Barbiturates Neg (Neg) 04/05/18 01:05 Ur Phencyclidine (PCP) Neg (Neg) 04/05/18 01:05 U Amphetamin/Meth Scrn Neg (Neg) 04/05/18 01:05 MDMA (Ecstasy) Screen Neg (Neg) 04/05/18 01:05 U Benzodiazepines Scrn Neg (Neg) 04/05/18 01:05 Ur Cocaine Metabolite Neg (Neg) 04/05/18 01:05 U Marijuana (THC) Screen Neg (Neg) 04/05/18 01:05 Medications Administered Home Medications Medication Instructions Recorded Confirmed amiloride-hydrochlorothiazide 1 tab PO QAM 11/19/17 04/05/18 meclizine 25 mg PO TID PRN 04/05/18 04/05/18 omeprazole 40 mg PO HS 04/05/18 04/05/18 Previous Rx's Medication Instructions Recorded hydroxyzine HCl 50 mg PO HS PRN #10 tab 02/18/18 prazosin 3 mg PO HS #90 cap 03/08/18 sertraline 200 mg PO DAILY #60 tab 03/08/18 Code Status & VTE Plan Code Status Full code VTE Prophylaxis Plan VTE Prophylaxis will be ordered: Yes _ (1) Syncope Encounter type: Syncope type:
[2018-04-05] MEDS ORDERED: NSS + 20MEQ KCL 20 MEQ/1,000 ML BAG IV SCH (05:30)
--- NOTE | 2018-04-05 06:25 | XRay Report ---
XR chest 1V portable CLINICAL HISTORY: Syncope mental status change COMPARISON STUDY: 11/22/2016 FINDINGS: The bones soft tissues and hemidiaphragms are normal. The cardiomediastinal silhouette is n ormal. The lungs are clear. The pulmonary vasculature is slightly increased IMPRESSION: Mild pulmonary vascular congestion The above report was generated using voice recognition software. It may contain grammatical, syntax or spelling errors. Electronically signed by: Dillon Andujar M.D. 04/05/2018 6:23 AM
--- NOTE | 2018-04-05 06:39 | CT Scan Report ---
CT head/brain wo con CT DOSE: 537.48 mGy.cm HISTORY: Mental status change syncope TECHNIQUE: Multiaxial CT images of the head were performed without the use of intravenous contrast. A dose lowering technique was utilized adhering to the principles of ALARA. Comparison: 03/04/2017 Findings: The paranasal sinuses and mastoid air cells are clear. The calvarium and skull base are int act. The ventricles and sulci are within normal limits. There is no mass, hematoma, midline shift, or acute infarct. Impression: No acute intracranial abnormality. The above report was generated using voice recognition software. It may contain grammatical, syntax or spelling errors. Electronically signed by: Dillon Andujar M.D. 04/05/2018 6:38 AM
[2018-04-05 07:14] LABS: INR 1.1 (0.9-1.1); Partial Thromboplastin Ratio 0.9; Partial Thromboplastin Time 23.5 Seconds (21.0-31.0); Prothrombin Time 10.7 Seconds (9.0-12.0)
[2018-04-05 07:17] LABS: Basophils # (auto) 0.01 K/uL (0-0.2); Basophils % (auto) 0.1 %; Eosinophils # (auto) 0.01 K/uL (0-0.5); Eosinophils % (auto) 0.1 %; Hematocrit (blood only) 38.9 % (42-52); Hemoglobin 13.9 g/dL (14.0-18.0); Immature Granulocytes # (auto) 0.01 K/uL (0.00-0.02); Immature Granulocytes % (auto) 0.1 %; Lymphocytes # (auto) 1.37 K/uL (1.2-3.4); Lymphocytes % (auto) 19.3 %; Mean Corpuscular Hgb Conc 35.7 g/dL (32-36); Mean Corpuscular Volume 86.4 fL (80-100); Mean Platelet Volume 11.2 fL (7.4-10.4); Monocytes # (auto) 0.47 K/uL (0.11-0.59); Monocytes % (auto) 6.6 %; Neutrophils # (auto) 5.24 K/uL (1.4-6.5); Neutrophils % (auto) 73.8 %; Platelet Count 127 K/uL (130-400); RDW Coefficient of Variation 12.3 % (11.5-14.5); RDW Standard Deviation 38.9 fL (36.4-46.3); White Blood Count 7.11 K/uL (4.8-10.8)
[2018-04-05 07:39] LABS: Albumin Level 3.6 gm/dl (3.4-5.0); BUN Creatinine Ratio 15.4 (10-20); Bilirubin,Total 0.6 mg/dl (0.2-1); Calcium 8.5 mg/dl (8.5-10.1); Creatinine Clr Calc Pharmacy 85.7 ml/min; Est GFR (African American) 77.9; Est GFR (Non-African American) 67.2; Globulin 3.5 gm/dl (2.5-4.0); Potassium 3.8 mmol/L (3.5-5.1); Total Protein 7.1 gm/dl (6.4-8.2)
[2018-04-05] MEDS ORDERED: SERTRALINE HCL 100 MG TABLET PO SCH (09:00)
[2018-04-05] MEDS ORDERED: ENOXAPARIN INJ 40 MG/0.4 ML SYR SQ SCH (09:00)
[2018-04-05 09:49] LABS: Estimated Average Glucose 117 mg/dl
--- NOTE | 2018-04-05 11:34 | Discharge Summary ---
Date of Service April 05, 2018 Admission HPI Per Admitting Provider The patient is a 57-year-old male with past medical history including hypertension, vertigo, depression and GERD, who reportedly was prescribed a new medication, of which he took 3 pills this evening as directed, then about 30 minutes later he became sweaty, sat down and then passed out for was thought to be less than a minute. Upon arrival of EMS he was alert and oriented, and was given Zofran en route along with 1 L of normal saline. Upon arrival in the ED, the patient was back to his baseline. At the time of my examination, he primarily reported feeling a little bit tired. Principal Diagnosis Syncope Discharge Exam Constitutional WD/WN, vitals as above + well hydrated Respiratory normal respiratory effort, lungs clear to auscultation Cardiovascular RRR, no murmur, no edema Gastrointestinal (Abdomen) normal bowel sounds, soft, nontender, no hepatosplenomegaly Skin no rashes, warm and dry Discharge Data Allergies Allergy/AdvReac Type Severity Reaction Status Date / Time No Known Allergies Allergy Verified 04/05/18 00:10 Consultations 04/05/18 01:37 ED Decision to Admit Stat 04/05/18 03:21 Consult Case Management - Discharge Planning Routine Ordered Studies 04/05/18 02:23 CT head/brain wo con Urgent Hospital Course (1) Syncope: Mr. Dominguez is a 57-year-old male with past medical history including hypertension, vertigo, depression and GERD, who presented to [facility] after a syncopal episode. - By history appears to be a side effect of a blood pressure medication taken before bed. - monitored on telemetry, no signs of arrhythmias noted - history not suggestive of seizure, no lab abnormalities to suggest infection - Medication review shows prazosin 3 mg at bedtime, with recent refill showing 90 pills. Previously was given 1mg tablets x3, unsure if patient has 3mg tablets or 1mg tablets at home. Speculating that patient took prazosin 9 mg and developed orthostatic hypotension. - BP on morning of discharge was 119/71 despite not receiving any medications this AM - continue home amiloride/HCTZ and HOLD prazosin for now - encouraged to buy BP cuff and take BP at home - f/u with PCP to review BP measurements and change medications as appropriate zofran appears to lengthen patient's QTc to >500, caution with use. (2) Hypokalemia: - potassium 2.9 on admission, supplemented w/IVF and improved to 3.8 on discharge - likely secondary to diuretic use - given 10mEq of potassium chloride to take daily - recommend recheck of BMP in outpatient setting -> may require adjustment of hydrochlorothiazide (3) Hypertension: (4) GERD (gastroesophageal reflux disease): (5) Benign positional vertigo: (6) Depression: Total Time Total Time Spent Total Time Spent (In Minutes): <30 Discharge Plan Discharge Items Patient Disposition: Home - Self-Care Reason For Visit: SYNCOPE Discharge Diagnosis: Fainting Condition: Good Discharge Goals: Improve disease control and Improve function Activity: Resume your previous activity Non-emergency contact: Primary Care Provider Call non-emergency contact if: you have any medication questions Follow-up/Referrals: Laurence Rangel MD [Primary Care Provider] - 04/12/18 2:00 pm (Please, follow up with Dr. Rangel on WednesdayApril 12 at 2:00 pm. *If you need to change this appointment, call the office at [phone].) Diet: Regular Addtl Provider Instructions: Mr. Dominguez, girish were admitted to [facility] due to an episode where you fainted. This was likely due to too much blood pressure medication. We will be discontinuing your prazosin. We did monitor you overnight to ensure there were no problems with your heart, and everything looked good. Your potassium level was on the lower side, gave you some IV fluids to improve this. We will be discharging you home with a tablet to increase your potassium, for you to take once a day. We are arranging a follow-up appointment with your primary care doctor. In summary, your medications include: 1) 1 tablet of the amiloridehydrochlorothiazide every morning 2) 1 tablet at the potassium chloride every day 3) 1 tablet of the sertraline every day 4) 1 tablet of the hydroxyzine each night, as needed, for sleep 5) 1 tablet of the meclizine, up to 3 times a day as needed for dizziness 6) 1 tablet of the omeprazole each night Please stop taking the prazosin. We recommend that she buy a blood pressure cuff, to take your blood pressure measurements at home. You can review this with your primary care doctor at your appointment, and they can decide if any changes need to be made to your medication. If you have any medication questions , please ask your doctor. If you experience any chest pain, shortness of breath, feeling lightheaded or dizzy, please call a doctor. Prescriptions: New potassium chloride 10 mEq capsule, extended release 10 meq PO DAILY 30 Days Qty: 30 RF: 3 Continue amiloride-hydrochlorothiazide 5-50 mg Tablet 1 tab PO QAM RF: 0 sertraline 100 mg tablet 200 mg PO DAILY Qty: 60 RF: 0 omeprazole 40 mg Capsule,Delayed Release(Dr/Ec) 40 mg PO HS RF: 0 meclizine 25 mg Tablet 25 mg PO TID PRN (Reason: Dizziness) RF: 0 hydroxyzine HCl 25 mg Tablet 50 mg PO HS PRN (Reason: Sleep) Qty: 10 RF: 5 Discontinued prazosin 1 mg capsule 3 mg PO HS Qty: 90 RF: 0 Stand-Alone Forms: [employer] [facility] [employer]/Other Patient Handouts: Potassium, Hyperkalemia Dc Discharge Orders: Discharge Order (Routine); Ordered 04/05/18 Ordered By: Uday aGsca Admission Data Admit Date/Time: 04/05/18 02:27 Attending Provider: Rigo Simon Admit Provider: Antony Ruiz Primary Care Provider: Laurence Rangel Other Providers: Antony Ruiz Service: Telemetry Other Interventions: Discharge Summary Assessment (RN) Last Done: 04/05/18 11:58 DC Date/Time DO NOT enter until pt leaves facility: 04/05/18 14:12 Supervising Physician Co-Signing Physician Notes I personally examined the patient and verified all franco points of history and exam, discussed case, and agree with decision making with Dr Gasca. Feeling better, feeling up to going home. No new problems, no new complaints. Vitals noted, in general he is awake and alert no distress. HEENT normocephalic atraumatic mucous membranes are moist. Skin shows no rashes no pallor or icterus. Mental status is intact. Syncopeappears to have been due to taking accidentally too much alpha rebeca. This is resolved. Essential hypertensionhis blood pressure readings are actually reasonable here , for now we will have him hold off on his alpha rebeca entirely and continue his home meds otherwise. I instructed him to get a blood pressure cuff for ambulatory monitoring multiple times a day, and then a follow-up with his PCP by the end of the week. Hypokalemialikely relates to his diuretic, we will supplement potassium for the short-term and then check follow-up basic metabolic panel later this week. Otherwise for outpatient follow-up. Stable for home Resident Activity Tracking Resident Involvement: Resident Care Provided Care Provided: Adult Hospital Medicine
[2018-04-05] MEDS ORDERED: PANTOprazole 40 MG TAB PO SCH (21:00)
== END 2018-04-05 14:12 | disposition home or self-care (01) ==
LOC: ED 21:51 → 2S 21:51 → SUATTDRO 04-05 02:27 → 2S 04-05 02:45